=== PATIENT | female | born 1985 | race American Indian/Alaskan Native ===

== ENCOUNTER 2016-12-27 07:34 | Emergency (ER) | payer MEDICAID ==
[2016-12-27] MEDS ORDERED: Lidocaine 1% 30 ML SDV INJECT ONE (07:51)
[2016-12-27 08:48] VITALS: BP 116/72
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
== END 2016-12-27 08:25 | disposition home or self-care (01) ==
LOC: VM.ED 07:34
DX: S01.111A Laceration without foreign body of right eyelid and periocular area, initial encounter (principal); J45.909 Unspecified asthma, uncomplicated; Z90.49 Acquired absence of other specified parts of digestive tract; Y00.XXXA Assault by blunt object, initial encounter
CPT/HCPCS: 12011; 99282

== ENCOUNTER 2017-09-26 16:06 | Emergency (ER) | payer MEDICAID ==
[2017-09-26 16:20] VITALS: BP 138/72
[2017-09-26] MEDS ORDERED: Albuterol/Ipratropium 3.0-0.5 MG/3 ML Neb Soln NEB ONE (16:25)
[2017-09-26] MEDS ORDERED: Take Home: Codeine/guaiFENesin 100-10 MG/5 ML Syrup 5 ML, 2 Cup Pack PO ONE (16:47)
--- NOTE | 2017-09-26 16:51 | EDM.PDOC ---
ED HPI GENERAL MEDICAL PROBLEM - General Chief Complaint: Respiratory Problem Stated Complaint: cough Time Seen by Provider: 09/26/17 16:24 Source of Information: Reports: Patient History Limitations: Reports: No Limitations - History of Present Illness INITIAL COMMENTS - FREE TEXT/NARRATIVE: Patient comes in with complaints of a cough for the last few days. Denies chest tightening. No fever, chills, or night sweats. Has a history of asthma and is utilizing her rescue inhaler for her cough and shortness of breath. This has been effective and she states that this is all she does when she gets sick. Otherwise she does not use her rescue inhaler. No chest pain, abdominal pain, no bowel or bladder complaints. Afebrile today. She has been sick for approximately 5-6 days total per her report. This is her first visit for this problem. Is taking OTC medications and these have helped somewhat. 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 - Past Surgical History GI Surgical History: Reports: Cholecystectomy Female Surgical History: Reports: Section Social & Family History - Tobacco Use Smoking Status *Q: Unknown Ever Smoked ED ROS GENERAL - Review of Systems Review Of Systems: See Below Constitutional: Reports: No Symptoms HEENT: Reports: No Symptoms Respiratory: Reports: Shortness of Breath, Cough Cardiovascular: Reports: No Symptoms Endocrine: Reports: No Symptoms GI/Abdominal: Reports: No Symptoms : Reports: No Symptoms Musculoskeletal: Reports: No Symptoms Skin: Reports: No Symptoms Neurological: Reports: No Symptoms Psychiatric: Reports: No Symptoms Hematologic/Lymphatic: Reports: No Symptoms Immunologic: Reports: No Symptoms ED EXAM, GENERAL - Physical Exam Exam: See Below Exam Limited By: No Limitations General Appearance: Alert, WD/WN, No Apparent Distress Eye Exam: Bilateral Eye: EOMI, Normal Inspection, PERRL Ears: Normal TMs Nose: Normal Inspection, Normal Mucosa, No Blood Throat/Mouth: Normal Inspection, Normal Lips, Normal Teeth, Normal Gums, Normal Oropharynx, Normal Voice, No Airway Compromise Head: Atraumatic, Normocephalic Neck: Normal Inspection, Supple, Non-Tender, Full Range of Motion Respiratory/Chest: No Respiratory Distress, No Accessory Muscle Use, Wheezing ( bilateral lower lungs) Cardiovascular: Normal Peripheral Pulses, Regular Rate, Rhythm, No Edema, No Gallop, No JVD, No Murmur, No Rub GI/Abdominal: Normal Bowel Sounds, Soft, Non-Tender, No Organomegaly, No Distention, No Abnormal Bruit, No Mass Back Exam: Normal Inspection, Full Range of Motion, NT Extremities: Normal Inspection, Normal Range of Motion, Non-Tender, Normal Capillary Refill, No Pedal Edema Neurological: Alert, Oriented, CN II-XII Intact, Normal Cognition, Normal Gait, Normal Reflexes, No Motor/Sensory Deficits Psychiatric: Normal Affect, Normal Mood Skin Exam: Warm, Dry, Intact, Normal Color, No Rash Lymphatic: No Adenopathy Course - Vital Signs Last Recorded V/S: Last Vital Signs Temp 37.1 C 09/26/17 16:10 Pulse 73 09/26/17 16:10 Resp 18 09/26/17 16:10 BP 138/72 09/26/17 16:10 Pulse Ox 96 09/26/17 16:10 - Orders/Labs/Meds Orders: Active Orders 24 hr Category Date Time Status RT Aerosol Therapy [RC] ASDIRECTED Care 09/26/17 16:25 Active Labs: Laboratory Tests 09/26/17 Range/Units 16:38 WBC 10.2 H (4.0-10.0) x10^3/uL RBC 4.26 (4.00-5.50) x10^6/uL Hgb 13.1 (12.0-16.0) g/dL Hct 41.1 (33.0-47.0) % MCV 96.5 H (78.0-93.0) fL MCH 30.8 (26.0-32.0) pg MCHC 31.9 L (32.0-36.0) g/dL RDW Coeff of Irene 12.9 (10.0-15.0) % Plt Count 303 (130-400) x10^3/uL Neut % (Auto) 66.3 (50.0-80.0) % Lymph % (Auto) 20.6 L (25.0-50.0) % Sanders % (Auto) 8.8 (2.0-11.0) % Eos % (Auto) 3.8 (0.0-4.0) % Baso % (Auto) 0.5 (0.2-1.2) % Meds: Medications Discontinued Medications Generic Name Dose Route Start Last Admin Trade Name Freq PRN Reason Stop Dose Admin Albuterol/Ipratropium 3 ml 09/26/17 16:25 09/26/17 16:34 Duoneb 3.0-0.5 Mg/3 Ml NEB 09/26/17 16:26 3 ml ONETIME ONE Administration Guaifenesin/Codeine Phosphate 1 packet 09/26/17 16:47 09/26/17 16:56 Take Home: Codeine/Guaifenesin 100-10 Mg/5ml PO 09/26/17 16:48 1 packet ONETIME ONE Administration - Radiology Interpretation Free Text/Narrative:: Review of CBC, results do not indicate bacterial infection. Recommend follow up with primary care, continue OTC, will give cough syrup as take home. Departure - Departure Time of Disposition: 17:00 Disposition: Home, Self-Care 01 Condition: Good Clinical Impression: Viral upper respiratory infection - Discharge Information Instructions: Upper Respiratory Infection, Adult, [id number] Referrals: Dg Jolley MD [Primary Care Provider] - Forms: ED Department Discharge Additional Instructions: Take the cough syrup at bedtime so you can get better rest. Follow up at the clinic in the next 3-4 days if you are not improved. This does appear to be viral in nature. Continue to take over the counter medications to treat your symptoms. Stay well hydrated. Call the hospital with any questions or concerns. - Problem List & Annotations (1) Viral upper respiratory infection SNOMED Code(s): 845430663 Code(s): J06.9 - ACUTE UPPER RESPIRATORY INFECTION, UNSPECIFIED Status: Acute Priority: Low - Problem List Review Problem List Initiated/Reviewed/Updated: Yes - My Orders Last 24 Hours: My Active Orders 09/26/17 16:25 RT Aerosol Therapy [RC] ASDIRECTED - Assessment/Plan Last 24 Hours: My Active Orders 09/26/17 16:25 RT Aerosol Therapy [RC] ASDIRECTED Assessment:: upper respiratory infection Plan: Take the cough syrup at bedtime so you can get better rest. Follow up at the clinic in the next 3-4 days if you are not improved. This does appear to be viral in nature. Continue to take over the counter medications to treat your symptoms. Stay well hydrated. Call the hospital with any questions or concerns.
== END 2017-09-26 17:00 | disposition home or self-care (01) ==
LOC: VM.ED 16:06
DX: J06.9 Acute upper respiratory infection, unspecified (principal); J45.909 Unspecified asthma, uncomplicated
CPT/HCPCS: 36415; 85025; 94640; 99283; A9270

== ENCOUNTER 2018-12-05 15:23 | Emergency (ER) | payer MEDICAID ==
[2018-12-05 15:32] VITALS: BP 149/92; PULSE 86
--- NOTE | 2018-12-05 16:15 | EDM.PDOC ---
ED HPI GENERAL MEDICAL PROBLEM - General Chief Complaint: Lower Extremity Injury/Pain Stated Complaint: FELL, HURT KNEE AND RT ANKLE Time Seen by Provider: 12/05/18 15:35 Source of Information: Reports: Patient History Limitations: Reports: No Limitations - History of Present Illness INITIAL COMMENTS - FREE TEXT/NARRATIVE: Pt. states that she tripped over some uneven concrete, twisting her R ankle, and causing abrasions to her L knee, foot, and ankle. She did not strike her head. She recalls the entire event. Pt. main area of discomfort is her R ankle. She feels as though the other injuries are superficial and are not causing her a significant amount of discomfort. Denies numbness/tingling in extremities. 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 - Past Surgical History GI Surgical History: Reports: Cholecystectomy Female Surgical History: Reports: Section Social & Family History - Tobacco Use Smoking Status *Q: Current Every Day Smoker Years of Tobacco use: 15 Packs/Tins Daily: 0.2 - Recreational Drug Use Recreational Drug Use: No Review of Systems - Review of Systems Review Of Systems: ROS reveals no pertinent complaints other than HPI. ED EXAM, GENERAL - Physical Exam Exam: See Below Exam Limited By: No Limitations General Appearance: Alert, WD/WN, No Apparent Distress Extremities: Other (swelling and ecchymosis to the lateral aspect of the R ankle. No deformity noted. She has a large abrasion to her L knee, as well as some superfical abrasions to L ankle and foot. There is some bleeding under the L great toe nail, but it is superficial and there does not appear to be a significant nail injury or subungual hematoma.) Course - Vital Signs Last Recorded V/S: Last Vital Signs Temp 36.8 C 12/05/18 15:32 Pulse 86 12/05/18 15:32 Resp 14 12/05/18 15:32 BP 149/92 H 12/05/18 15:32 Pulse Ox 97 12/05/18 15:32 - Orders/Labs/Meds Orders: Active Orders 24 hr Category Date Time Status Ankle Min 3V Rt [CR] Stat Exams 12/05/18 15:45 Ordered - Radiology Interpretation Free Text/Narrative:: No obvious bony injury noted on radiographs of R ankle. Departure - Departure Time of Disposition: 16:35 Disposition: Home, Self-Care 01 Clinical Impression: High ankle sprain of right lower extremity - Discharge Information Instructions: Ankle Sprain, [id number], Cast or Splint Care, Adult, Easy-to- Read, RICE for Routine Care of Injuries Referrals: Dg Jolley MD [Primary Care Provider] - Forms: ED Department Discharge Additional Instructions: Use splint and shelton wrap. Use crutches as needed. Recheck in clinic in 7-10 days if not gradually improving. Elevate R foot and ankle-attempt to keep it above your heart. Ice ankle for 20 min. every 30 min. - My Orders Last 24 Hours: My Active Orders 12/05/18 15:45 Ankle Min 3V Rt [CR] Stat - Assessment/Plan Last 24 Hours: My Active Orders 12/05/18 15:45 Ankle Min 3V Rt [CR] Stat Plan: Use splint and shelton wrap. Use crutches as needed. Recheck in clinic in 7-10 days if not gradually improving. Elevate R foot and ankle-attempt to keep it above your heart. Ice ankle for 20 min. every 30 min.
--- NOTE | 2018-12-05 16:36 | CR ---
[id number] RAD/RAD Ankle Right 3V Min EXAM: RIGHT ANKLE 3 VIEWS INDICATION: TRIPPED OVER CONCRETE. COMPARISON: None. DISCUSSION: Mild lateral soft tissue swelling. No fracture is identified. Joint spaces are maintained. Mild tibiotalar and talonavicular osteoarthritis. IMPRESSION: 1. Soft tissue swelling. No fracture identified. Fitz Toledo MD 12/05/18 [id number] Thank you for allowing us to participate in the care of your patient.
== END 2018-12-05 16:40 | disposition home or self-care (01) ==
LOC: VM.ED 15:23
DX: S93.401A Sprain of unspecified ligament of right ankle, initial encounter (principal); F17.210 Nicotine dependence, cigarettes, uncomplicated; X50.9XXA Other and unspecified overexertion or strenuous movements or postures, initial encounter
CPT/HCPCS: 73610-RT; 99283-25

== ENCOUNTER 2020-06-23 16:02 | Emergency (ER) | payer MEDICAID ==
[2020-06-23] MEDS ORDERED: Take Home: Sulfamethoxazole/Trimethoprim 800-160 MG Tab, 2 Tab Pack PO ONE (16:16)
[2020-06-23 16:20] VITALS: BP 146/75; PULSE 96
--- NOTE | 2020-06-23 18:12 | EDM.PDOC ---
ED HPI GENERAL MEDICAL PROBLEM - General Chief Complaint: Skin Complaint Stated Complaint: NECK PAIN Time Seen by Provider: 06/23/20 16:05 Source of Information: Reports: Patient History Limitations: Reports: No Limitations - History of Present Illness INITIAL COMMENTS - FREE TEXT/NARRATIVE: Pt. presents to ER with complaints of swelling to the back of her neck. She states that she is prone to skin structure infections. She has not been tested for MRSA. Denies any fever or chills. She states that she has noted a small abscess in the area that has been draining. Pt. states that the pain is superficial. She is not experiencing any chest pain or shortness of breath. Denies any headache. She states that the lesion is isolated to the posterior aspect of her neck only. Denies any lesions elsewhere. 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 - Past Surgical History GI Surgical History: Reports: Cholecystectomy Female Surgical History: Reports: Section Social & Family History - Tobacco Use Tobacco Use Status *Q: Current Some Day Tobacco User Years of Tobacco use: 10 Packs/Tins Daily: 0.2 - Recreational Drug Use Recreational Drug Use: No ED ROS GENERAL - Review of Systems Review Of Systems: Comprehensive ROS is negative, except as noted in HPI. ED EXAM, SKIN/RASH Exam: See Below Neck: Other (Area of cellulitis/induration. There was a small area that had been draining but was unable to express any material at this time. ) Course - Vital Signs Last Recorded V/S: Last Vital Signs Temp 36.9 C 06/23/20 16:05 Pulse 96 06/23/20 16:05 Resp 16 06/23/20 16:05 BP 146/75 H 06/23/20 16:05 Pulse Ox 97 06/23/20 16:05 - Orders/Labs/Meds Meds: Medications Discontinued Medications Generic Name Dose Route Start Last Admin Trade Name Cierra PRN Reason Stop Dose Admin Trimethoprim/Sulfamethoxazole 1 packet 06/23/20 16:16 06/23/20 16:21 Take Home: Sulfameth/Trimet 800-160mg, 2 Pack PO 06/23/20 16:17 1 packet ONETIME ONE Administration Departure - Departure Time of Disposition: 17:00 Disposition: Home, Self-Care 01 Clinical Impression: Cellulitis - Discharge Information Instructions: Cellulitis, Adult, Sulfamethoxazole; Trimethoprim, SMX-TMP tablets, Probiotics Referrals: Alma Delia Roberts MD [Primary Care Provider] - Forms: ED Department Discharge Additional Instructions: Bactrim DS 1 twice daily for 10 days Keep applying warm packs to the area. Recheck in clinic in 10-14 days, sooner if not gradually improving Ibuprofen 200mg 4 tabs every 8 hours as needed for pain Sepsis Event Note (ED) - Evaluation Sepsis Screening Result: No Definite Risk - Focused Exam Vital Signs: Vital Signs Temp Pulse Resp BP Pulse Ox 06/23/20 16:05 36.9 C 96 16 146/75 H 97 - Problem List Review Problem List Initiated/Reviewed/Updated: Yes - Assessment/Plan Plan: Bactrim DS 1 twice daily for 10 days Keep applying warm packs to the area. Recheck in clinic in 10-14 days, sooner if not gradually improving Ibuprofen 200mg 4 tabs every 8 hours as needed for pain
== END 2020-06-23 16:30 | disposition home or self-care (01) ==
LOC: VM.ED 16:02
DX: L03.221 Cellulitis of neck (principal); J45.909 Unspecified asthma, uncomplicated; Z72.0 Tobacco use
CPT/HCPCS: 99283; A9270-GY

== ENCOUNTER 2020-07-09 19:13 | Emergency (ER) | payer MEDICAID ==
[2020-07-09 19:30] VITALS: BP 147/71; PULSE 81
[2020-07-09] MEDS ORDERED: Sodium Chloride 0.9% 10 ML Syringe FLUSH PRN (19:40)
--- NOTE | 2020-07-09 19:47 | EDM.PDOC ---
ED HPI GENERAL MEDICAL PROBLEM - General Chief Complaint: Skin Complaint Stated Complaint: GENERAL Time Seen by Provider: 07/09/20 19:28 Source of Information: Reports: Patient - History of Present Illness INITIAL COMMENTS - FREE TEXT/NARRATIVE: Susan is a 34 y/o female who comes to the ER tonight with several sores on the back of her neck and 1 on her left breast. She was seen here in the ER on 021 and given Bactrim for another wound on her neck. She reports that she took all of the medication, but that the neck wound is still draining or she has another one on the other side. Also has a similar wound on her left breast that she keeps covered with a bandaid. No fevers. She reports that she frequently gets skin infections at random locations. She has previously seen Dr Pedro Anguiano and is not able to get into the clinic until Wednesday since she is being assigned a new provider. 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 - Past Surgical History GI Surgical History: Reports: Cholecystectomy Female Surgical History: Reports: Section Social & Family History - Family History Family Medical History: No Pertinent Family History - Tobacco Use Tobacco Use Status *Q: Current Every Day Tobacco User Years of Tobacco use: 10 Packs/Tins Daily: 0.2 - Alcohol Use Days Per Week of Alcohol Use: 7 Number of Drinks Per Day: 2 Total Drinks Per Week: 14 - Recreational Drug Use Recreational Drug Use: No ED ROS GENERAL - Review of Systems Review Of Systems: See Below Constitutional: Reports: No Symptoms HEENT: Reports: No Symptoms Respiratory: Reports: No Symptoms Cardiovascular: Reports: No Symptoms Endocrine: Reports: No Symptoms GI/Abdominal: Reports: No Symptoms : Reports: No Symptoms Musculoskeletal: Reports: No Symptoms Skin: Reports: Wound (back of neck, left breast) Neurological: Reports: No Symptoms Psychiatric: Reports: No Symptoms Hematologic/Lymphatic: Reports: No Symptoms Immunologic: Reports: No Symptoms ED EXAM, SKIN/RASH Exam: See Below Exam Limited By: No Limitations General Appearance: Alert, WD/WN, No Apparent Distress (Obese adult female) Ears: Hearing Grossly Normal Nose: Normal Inspection Throat/Mouth: Normal Lips, Normal Voice Head: Atraumatic, Normocephalic Neck: Other (note a healing wound on the back oher neck in the crease of skin and also another open area in the left side of the back of her neck, drainage is light green and the area is moist, no induration noted, but tender to touch; note another open area on the left breast region draining light green pus) Respiratory/Chest: No Respiratory Distress Cardiovascular: Regular Rate, Rhythm GI/Abdominal: Normal Bowel Sounds (Female) Exam: Deferred Rectal (Female) Exam: Deferred Back Exam: Normal Inspection Extremities: Normal Inspection, Normal Range of Motion, Normal Capillary Refill Neurological: Alert, Oriented, CN II-XII Intact, Normal Cognition, No Motor/Sensory Deficits Psychiatric: Normal Affect, Normal Mood Skin: Warm, Dry, Intact, Normal Color Course - Vital Signs Text/Narrative:: 1927 The patient was seen by the [facility]. Labs ordered. Wounds cultured since not previously done when she was seen on 06/24. Vancomycin 1gm IVPB ordered. 2000 Labs reviewed. Will send her home with 10 days of Clindamycin. She was given discharge instructions and left the ER in stable condition. Last Recorded V/S: Last Vital Signs Temp 36.8 C 07/09/20 19:24 Pulse 81 07/09/20 19:24 Resp 18 07/09/20 19:24 BP 147/71 H 07/09/20 19:24 Pulse Ox 95 07/09/20 19:24 - Orders/Labs/Meds Orders: Active Orders 24 hr Category Date Time Status CULTURE WOUND [RM] Stat Lab 07/09/20 19:50 Received CULTURE WOUND [RM] Stat Lab 07/09/20 19:50 Received Saline Lock Insert [OM.PC] Stat Oth 07/09/20 19:40 Ordered Labs: Laboratory Tests 03/09/21 03/09/21 Range/Units 19:45 19:45 WBC 10.4 H (4.0-10.0) x10^3/uL RBC 4.09 (4.00-5.50) x10^6/uL Hgb 13.1 (12.0-16.0) g/dL Hct 40.2 (33.0-47.0) % MCV 98.3 H (78.0-93.0) fL MCH 32.0 (26.0-32.0) pg MCHC 32.6 (32.0-36.0) g/dL RDW Coeff of Irene 12.2 (10.0-15.0) % Plt Count 310 (130-400) x10^3/uL Neut % (Auto) 76.1 (50.0-80.0) % Lymph % (Auto) 17.2 L (25.0-50.0) % [place] % (Auto) 4.4 (2.0-11.0) % Eos % (Auto) 1.9 (0.0-4.0) % Baso % (Auto) 0.4 (0.2-1.2) % Sodium 138 (136-145) mmol/L Potassium 3.4 L (3.5-5.1) mmol/L Chloride 104 (98-107) mmol/L Carbon Dioxide 27 (21-32) mmol/L Anion Gap 10.4 (5-15) mmol/L BUN 10 (7-18) mg/dL Creatinine 0.9 (0.55-1.02) mg/dL Est Cr Clr Drug Dosing 77.49 mL/min Estimated GFR (MDRD) > 60 Glucose 151 H (74-106) mg/dL Calcium 8.3 L (8.5-10.1) mg/dL Departure - Departure Time of Disposition: 21:33 Disposition: Home, Self-Care 01 Condition: Good Clinical Impression: Skin infection - Discharge Information *PRESCRIPTION DRUG MONITORING PROGRAM REVIEWED*: No *COPY OF PRESCRIPTION DRUG MONITORING REPORT IN PATIENT IGNACIO: No Prescriptions: Clindamycin HCl 300 mg PO TID 10 Days #30 capsule Instructions: MRSA Infection, Self-Care, Adult, Clindamycin capsules Referrals: Alma Delia Roberts MD [Primary Care Provider] - Forms: ED Department Discharge Additional Instructions: -Bactrim DS 1 tablets oral twice daily x 10 days #20 (Rx) -Ibuprofen 200mg 3 tabs oral every 6 hours as needed for pain (OTC) -Wash the area daily with soap and water. -Dressing changes as instructed; Cover the open draining wounds with dry cause and tape and changes as needed throughout the day, but at least 2-3 times daily. -Make sure you wash your hands well after dressing changes. Also wash your shower/tub very well between family members to prevent the spread to others. Use bleach in your tub or shower to clean. -Follow up with PCP at the [facility] at the end of the week. -Return to the ER with any concerns Sepsis Event Note (ED) - Evaluation Sepsis Screening Result: No Definite Risk - Focused Exam Vital Signs: Vital Signs Temp Pulse Resp BP Pulse Ox 07/09/20 19:24 36.8 C 81 18 147/71 H 95 - My Orders Last 24 Hours: My Active Orders 07/09/20 19:40 Saline Lock Insert [OM.PC] Stat 07/09/20 19:50 CULTURE WOUND [RM] Stat CULTURE WOUND [RM] Stat - Assessment/Plan Last 24 Hours: My Active Orders 07/09/20 19:40 Saline Lock Insert [OM.PC] Stat 07/09/20 19:50 CULTURE WOUND [RM] Stat CULTURE WOUND [RM] Stat
[2020-07-09] MEDS ORDERED: Vancomycin 1 GM SDV ONE (20:03)
[2020-07-09] MEDS ORDERED: Sodium Chloride 0.9% 250 ML ONE (20:10)
[2020-07-09 20:20] LABS: CHLORIDE,CL 104 mmol/L (98-107); SODIUM,NA 138 mmol/L (136-145)
[2020-07-09 20:21] LABS: ANION GAP 10.4 mmol/L (5-15)
== END 2020-07-09 21:33 | disposition home or self-care (01) ==
LOC: VM.ED 19:13
DX: L08.9 Local infection of the skin and subcutaneous tissue, unspecified (principal); J45.909 Unspecified asthma, uncomplicated; E66.9 Obesity, unspecified; Z68.43 Body mass index [BMI] 50.0-59.9, adult; Z72.0 Tobacco use
CPT/HCPCS: 80048; 85025; 87070; 87077; 87186; 96365; 99283; 99283-25; J3370; J7050

== ENCOUNTER 2021-02-28 16:26 | Emergency (ER) | payer MEDICAID ==
[2021-02-28 16:45] VITALS: BP 143/82; PULSE 91
--- NOTE | 2021-02-28 16:56 | EDM.PDOC ---
ED HPI GENERAL MEDICAL PROBLEM - General Chief Complaint: Lower Extremity Injury/Pain Stated Complaint: PAIN IN L KNEE Time Seen by Provider: 02/28/21 16:40 Source of Information: Reports: Patient History Limitations: Reports: No Limitations - History of Present Illness INITIAL COMMENTS - FREE TEXT/NARRATIVE: Patient presents to the ED for left knee pain since yesterday. 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 No previous injury to the left knee, no known injury. Chronically has right knee problems with no surgery in the past but told she has some arthritis. Yesterday after getting up off the floor multiple times for work she noted the left knee starting to hurt " deep" in the middle of the knee. Not bulking or giving away, able to ambulate without a limp. No redness or drainage. Has not tried anything for it but does take motrin usually. Has not iced or used compression. Is supposed to work today but feels she can not do so due to the pain that is worse with kneeling and bent knee position. Onset Date: 02/27/21 Location: Reports: Lower Extremity, Left Quality: Reports: Ache Severity: Moderate Left Knee Pain Score (Numeric/FACES): 6 - Related Data Allergies Allergy/AdvReac Type Severity Reaction Status Date / Time No Known Allergies Allergy Verified 02/28/21 16:41 Home Meds: Home Meds . 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 - Past Surgical History GI Surgical History: Reports: Cholecystectomy Female Surgical History: Reports: Section Social & Family History - Family History Family Medical History: No Pertinent Family History - Tobacco Use Tobacco Use Status *Q: Current Some Day Tobacco User Years of Tobacco use: 15 Packs/Tins Daily: 0.5 - Alcohol Use Days Per Week of Alcohol Use: 7 Number of Drinks Per Day: 3 Total Drinks Per Week: 21 - Recreational Drug Use Recreational Drug Use: No Review of Systems - Review of Systems Review Of Systems: See Below Constitutional: Reports: No Symptoms. Denies: Chills Eyes: Reports: No Symptoms Ears: Reports: No Symptoms Nose: Reports: No Symptoms Mouth/Throat: Reports: No Symptoms Respiratory: Reports: No Symptoms Cardiovascular: Reports: No Symptoms Musculoskeletal: Reports: Joint Pain (left knee) Skin: Reports: No Symptoms Neurological: Reports: No Symptoms Psychiatric: Reports: No Symptoms ED EXAM, GENERAL - Physical Exam Exam: See Below Exam Limited By: No Limitations General Appearance: Alert, WD/WN, No Apparent Distress Nose: Normal Inspection Throat/Mouth: Normal Inspection, Normal Lips, Normal Voice Head: Atraumatic Respiratory/Chest: No Respiratory Distress, Lungs Clear Cardiovascular: Regular Rate, Rhythm Extremities: Other (left knee with negative lillian's no valgus or varus laxity on stress testing. Mild joint effusion, crepitus with compression of the patella in the patellofemoral groove. no erythema, full extension to 0 degrees and flexion to 90 degrees. NO pain to palpation of the tibial plateau) Neurological: Alert, Oriented, CN II-XII Intact, Normal Gait Course - Vital Signs Last Recorded V/S: Last Vital Signs Temp 36.9 C 02/28/21 16:30 Pulse 91 02/28/21 16:30 Resp 16 02/28/21 16:30 BP 143/82 H 02/28/21 16:30 Pulse Ox 97 02/28/21 16:30 - Orders/Labs/Meds Orders: Active Orders 24 hr Category Date Time Status Knee 3V Lt [CR] Stat Exams 02/28/21 16:42 Ordered - Radiology Interpretation Free Text/Narrative:: no acute, decreased medial joint space and lateral tilt of the patella with decreased joint space consistent with patellofemoral disease preliminary report only - Re-Assessments/Exams Free Text/Narrative Re-Assessment/Exam: 02/28/21 16:58 will check an x-ray. likely patellofemoral problems based on exam and patient's body habitus. motrin 600 mg every 6 hours, ice, shelton wrap, avoiding bent knee and kneeling position for the next 3 days. Follow up with PCP Departure - Departure Time of Disposition: 17:16 Disposition: Home, Self-Care 01 Condition: Good Clinical Impression: Joint effusion of knee, Knee pain - Discharge Information Instructions: Knee Effusion, [id number], Acute Knee Pain, Adult, [id number], Patellofemoral Pain Syndrome Referrals: Alma Delia Roberts MD [Primary Care Provider] - Forms: ED Department Discharge, ED Return to Work/School Form Additional Instructions: take motrin 600 mg every 6 hours for pain and swelling. Ice, elevate and wear shelton wrap on the knee. Avoid kneeling, bent knee positions, stairs. Off work until Wednesday, return at that time or follow up PCP, as some strengthening exercise may help the knee pain and tilt. Sepsis Event Note (ED) - Evaluation Sepsis Screening Result: No Definite Risk - Focused Exam Vital Signs: Vital Signs Temp Pulse Resp BP Pulse Ox 02/28/21 16:30 36.9 C 91 16 143/82 H 97 - My Orders Last 24 Hours: My Active Orders 02/28/21 16:42 Knee 3V Lt [CR] Stat - Assessment/Plan Last 24 Hours: My Active Orders 02/28/21 16:42 Knee 3V Lt [CR] Stat
--- NOTE | 2021-02-28 17:41 | CR ---
[id number] RAD/RAD Knee Left 3V Exam: RAD Knee Left 3V Indication:PAIN, SWELLING. Comparison: None. Discussion/Impression: Tricompartmental knee joint osteoarthritis with medial compartment joint space narrowing. No joint effusion. No fracture. Bones remain in normal alignment. Harry Frederick MD 02/28/21 1154 Thank you for allowing us to participate in the care of your patient.
== END 2021-02-28 17:50 | disposition home or self-care (01) ==
LOC: VM.ED 16:26
DX: M25.462 Effusion, left knee (principal); Z72.0 Tobacco use
CPT/HCPCS: 73562-LT; 99283-25

== ENCOUNTER 2021-04-08 14:40 | Inpatient (IN) | payer MEDICAID ==
[2021-04-08] MEDS ORDERED: REMDESIVIR 200 MG in Sodium Chloride 0.9% 250 ML IV ONE (15:17)
--- NOTE | 2021-04-08 15:31 | EDM.PDOC ---
ED HPI GENERAL MEDICAL PROBLEM - General Chief Complaint: Respiratory Problem Time Seen by Provider: 04/08/21 14:45 Source of Information: Reports: Patient History Limitations: Reports: No Limitations - History of Present Illness INITIAL COMMENTS - FREE TEXT/NARRATIVE: Pt. presents to ER with complaints of cough, chest congestion, loss of taste, lightheadedness, poor appetite, fatigue, and shortness of breath. Pt. had + covid test 03/31/21. She was diagnosed on 03/29/21. Her child tested positive as well. Pt. is not vaccinated. She came to the hospital as an outpatient today for MAB infusion and was found to have an O2 sat of 83%. She was subsequently brought to ER and placed on O2 per NC at 3L/min. and O2 sat increased to 93%. Pt. states that her appetite has been poor. She has been attempting to drink water. She has been taking ibuprofen for fever and discomfort. She complains of nausea but no vomiting. Denies any diarrhea. No chest pain. She complains of diffuse myalgias and arthralgias. Onset Date: 04/30/21 Location: Reports: Chest, Generalized Severity: Moderate Associated Symptoms: Reports: Shortness of Breath - Related Data Allergies Allergy/AdvReac Type Severity Reaction Status Date / Time No Known Allergies Allergy Verified 04/08/21 15:17 Home Meds: Home Meds . 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 - Past Surgical History GI Surgical History: Reports: Cholecystectomy Female Surgical History: Reports: Section Social & Family History - Family History Family Medical History: No Pertinent Family History ED ROS GENERAL - Review of Systems Review Of Systems: See Below Constitutional: Reports: Fever, Chills, Malaise, Weakness HEENT: Reports: No Symptoms Respiratory: Reports: Shortness of Breath, Cough Cardiovascular: Reports: No Symptoms Endocrine: Reports: No Symptoms GI/Abdominal: Reports: No Symptoms : Reports: No Symptoms Musculoskeletal: Reports: Joint Pain, Muscle Pain Skin: Reports: No Symptoms Neurological: Reports: No Symptoms Psychiatric: Reports: No Symptoms Hematologic/Lymphatic: Reports: No Symptoms Immunologic: Reports: No Symptoms ED EXAM, GENERAL - Physical Exam Exam: See Below Exam Limited By: No Limitations General Appearance: Alert, WD/WN, No Apparent Distress Eye Exam: Bilateral Eye: EOMI, PERRL Throat/Mouth: Normal Inspection, Normal Lips, Normal Oropharynx, Normal Voice Head: Atraumatic, Normocephalic Neck: Normal Inspection, Supple, Non-Tender, Full Range of Motion Respiratory/Chest: Decreased Breath Sounds, Crackles Cardiovascular: Normal Peripheral Pulses, Regular Rate, Rhythm, No JVD Peripheral Pulses: 4+: Radial (L) GI/Abdominal: Soft, Non-Tender, No Distention, No Mass (Female) Exam: Deferred Rectal (Female) Exam: Deferred Back Exam: Normal Inspection, Full Range of Motion Extremities: Normal Inspection, Normal Range of Motion, Non-Tender, No Pedal Edema, Normal Capillary Refill Neurological: Alert, Oriented, CN II-XII Intact, Normal Cognition, Normal Gait, No Motor/Sensory Deficits Psychiatric: Normal Affect, Normal Mood Lymphatic: No Adenopathy #1 Interpretation Rhythm: NSR [place]: Normal P-Wave: Present QRS: Normal ST-T: Normal QT: Normal Course - Vital Signs Last Recorded V/S: Last Vital Signs Temp 38.8 C H 04/08/21 15:32 Pulse 107 H 04/08/21 14:45 Resp 28 H 04/08/21 14:45 BP 133/63 04/08/21 14:45 Pulse Ox 83 L 04/08/21 14:45 - Orders/Labs/Meds Orders: Active Orders 24 hr Category Date Time Status Patient Status [ADT] Routine ADT 04/08/21 18:10 Active Cardiac Monitoring [RC] . DIRECTED Care 04/08/21 15:17 Active RT Incentive Spirometry [RC] ASDIRECTED Care 04/08/21 15:17 Active PE Chest [Ang Chest] [CT] Stat Exams 04/08/21 16:17 Ordered CULTURE BLOOD [BC] Stat Lab 04/08/21 15:40 Received CULTURE BLOOD [BC] Stat Lab 04/08/21 15:45 Received Acetaminophen [TylenoL] Med 04/08/21 15:17 Active 650 mg PO Q4H PRN Isolation [COMM] Stat Oth 04/08/21 15:17 Ordered Medication Orders Acetaminophen (Acetaminophen 325 Mg Tab) 650 mg PO Q4H PRN PRN Reason: Fever Greater Than 101 Last Admin: 04/08/21 15:32 Dose: 650 mg Documented by: [facility] Albuterol (Albuterol Hfa 18 Gm Inhaler) 0 gm INH Q4H PRN PRN Reason: Shortness of Breath Dexamethasone 2 mg/ (Dexamethasone 4 mg) 6 mg PO DAILY [facility] Stop: 04/13/21 15:01 Enoxaparin Sodium (Enoxaparin 40 Mg/0.4 Ml Syringe) 40 mg SUBCUT 1200 [facility] Remdesivir 100 mg/ Sodium (Chloride) 100 mls @ 100 mls/hr IV Q24H [facility] Stop: 04/12/21 15:59 Ibuprofen (Ibuprofen 200 Mg Tab) 600 mg PO Q6H PRN PRN Reason: Pain (mild 1-3) Ondansetron HCl (Ondansetron 4 Mg Tab.Dis) 4 mg PO Q4H PRN PRN Reason: nausea, able to take PO Labs: Laboratory Tests 04/08/21 04/08/21 04/08/21 Range/Units 15:40 15:40 15:40 WBC (4.0-10.0) x10^3/uL RBC (4.00-5.50) x10^6/uL Hgb (12.0-16.0) g/dL Hct (33.0-47.0) % MCV (78.0-93.0) fL MCH (26.0-32.0) pg MCHC (32.0-36.0) g/dL RDW Coeff of Irene (10.0-15.0) % Plt Count (130-400) x10^3/uL Immature Gran % (Auto) (0.00-0.43) % Neut % (Auto) (50.0-80.0) % Lymph % (Auto) (25.0-50.0) % [place] % (Auto) (2.0-11.0) % Eos % (Auto) (0.0-4.0) % Baso % (Auto) (0.2-1.2) % Neut # (Auto) (1.8-7.7) x10^3/uL Lymph # (Auto) (1.0-4.8) x10^3/uL [place] # (Auto) (0.0-0.8) x10^3/uL Eos # (Auto) (0.0-0.5) x10^3/uL Baso # (Auto) (0.0-0.2) x10^3/uL Immature Gran # (Auto) (0.00-0.07) x10^3/uL PT 10.3 (9.9-12.5) SEC INR 0.9 L (2.0-3.5) APTT 27.4 (25.6-32.8) SEC D-Dimer, Quantitative (<=0.58) mg/LFEU POC VBG pH (7.33-7.43) pH POC VBG pCO2 (41-51) mmHg POC VBG pO2 mmHg POC VBG HCO3 (22-29) mmol/L POC Venous O2 Sat % VBG Base Excess (-(2)-3) mmol/L POC FiO2 Sodium 135 L (136-145) mmol/L Potassium 3.9 (3.5-5.1) mmol/L Chloride 98 (98-107) mmol/L Carbon Dioxide 25 (21-32) mmol/L POC Venous Total CO2 (23-30) mmol/L Anion Gap 15.9 H (5-15) mmol/L BUN 9 (7-18) mg/dL Creatinine 0.9 (0.55-1.02) mg/dL Est Cr Clr Drug Dosing 76.77 mL/min Estimated GFR (MDRD) > 60 Glucose 107 H (70-99) mg/dL Lactic Acid 1.3 (0.4-2.0) mmol/L Calcium 8.7 (8.5-10.1) mg/dL Ferritin (8-252) ng/mL Total Bilirubin 0.5 (0.2-1.0) mg/dL Direct Bilirubin 0.24 H (0.00-0.20) mg/dL Indirect Bilirubin 0.26 AST 58 H (15-37) U/L ALT 33 (14-59) U/L Alkaline Phosphatase 57 (46-116) U/L Lactate Dehydrogenase 484 H (81-234) U/L Creatine Kinase 214 H* (26-192) U/L C-Reactive Protein 15.2 H (<=0.9) mg/dL Total Protein 9.0 H (6.4-8.2) g/dL Albumin 3.2 L (3.4-5.0) g/dL Globulin 5.8 Albumin/Globulin Ratio 0.55 Procalcitonin (0.1-0.50) ng/mL 04/08/21 04/08/21 04/08/21 Range/Units 15:40 15:40 15:40 WBC 7.0 (4.0-10.0) x10^3/uL RBC 4.50 (4.00-5.50) x10^6/uL Hgb 14.7 (12.0-16.0) g/dL Hct 42.6 (33.0-47.0) % MCV 94.7 H (78.0-93.0) fL MCH 32.7 H (26.0-32.0) pg MCHC 34.5 (32.0-36.0) g/dL RDW Coeff of Irene 12.2 (10.0-15.0) % Plt Count 183 (130-400) x10^3/uL Immature Gran % (Auto) 0.60 H (0.00-0.43) % Neut % (Auto) 76.7 (50.0-80.0) % Lymph % (Auto) 14.5 L (25.0-50.0) % [place] % (Auto) 7.9 (2.0-11.0) % Eos % (Auto) 0.0 (0.0-4.0) % Baso % (Auto) 0.3 (0.2-1.2) % Neut # (Auto) 5.4 (1.8-7.7) x10^3/uL Lymph # (Auto) 1.0 (1.0-4.8) x10^3/uL [place] # (Auto) 0.6 (0.0-0.8) x10^3/uL Eos # (Auto) 0.0 (0.0-0.5) x10^3/uL Baso # (Auto) 0.0 (0.0-0.2) x10^3/uL Immature Gran # (Auto) 0.04 (0.00-0.07) x10^3/uL PT (9.9-12.5) SEC INR (2.0-3.5) APTT (25.6-32.8) SEC D-Dimer, Quantitative 1.49 H (<=0.58) mg/LFEU POC VBG pH (7.33-7.43) pH POC VBG pCO2 (41-51) mmHg POC VBG pO2 mmHg POC VBG HCO3 (22-29) mmol/L POC Venous O2 Sat % VBG Base Excess (-(2)-3) mmol/L POC FiO2 Sodium (136-145) mmol/L Potassium (3.5-5.1) mmol/L Chloride (98-107) mmol/L Carbon Dioxide (21-32) mmol/L POC Venous Total CO2 (23-30) mmol/L Anion Gap (5-15) mmol/L BUN (7-18) mg/dL Creatinine (0.55-1.02) mg/dL Est Cr Clr Drug Dosing mL/min Estimated GFR (MDRD) Glucose (70-99) mg/dL Lactic Acid (0.4-2.0) mmol/L Calcium (8.5-10.1) mg/dL Ferritin 589 H (8-252) ng/mL Total Bilirubin (0.2-1.0) mg/dL Direct Bilirubin (0.00-0.20) mg/dL Indirect Bilirubin AST (15-37) U/L ALT (14-59) U/L Alkaline Phosphatase (46-116) U/L Lactate Dehydrogenase (81-234) U/L Creatine Kinase (26-192) U/L C-Reactive Protein (<=0.9) mg/dL Total Protein (6.4-8.2) g/dL Albumin (3.4-5.0) g/dL Globulin Albumin/Globulin Ratio Procalcitonin (0.1-0.50) ng/mL 04/08/21 04/08/21 Range/Units 15:40 16:01 WBC (4.0-10.0) x10^3/uL RBC (4.00-5.50) x10^6/uL Hgb (12.0-16.0) g/dL Hct (33.0-47.0) % MCV (78.0-93.0) fL MCH (26.0-32.0) pg MCHC (32.0-36.0) g/dL RDW Coeff of Irene (10.0-15.0) % Plt Count (130-400) x10^3/uL Immature Gran % (Auto) (0.00-0.43) % Neut % (Auto) (50.0-80.0) % Lymph % (Auto) (25.0-50.0) % [place] % (Auto) (2.0-11.0) % Eos % (Auto) (0.0-4.0) % Baso % (Auto) (0.2-1.2) % Neut # (Auto) (1.8-7.7) x10^3/uL Lymph # (Auto) (1.0-4.8) x10^3/uL [place] # (Auto) (0.0-0.8) x10^3/uL Eos # (Auto) (0.0-0.5) x10^3/uL Baso # (Auto) (0.0-0.2) x10^3/uL Immature Gran # (Auto) (0.00-0.07) x10^3/uL PT (9.9-12.5) SEC INR (2.0-3.5) APTT (25.6-32.8) SEC D-Dimer, Quantitative (<=0.58) mg/LFEU POC VBG pH 7.42 (7.33-7.43) pH POC VBG pCO2 38 L (41-51) mmHg POC VBG pO2 59 mmHg POC VBG HCO3 25 (22-29) mmol/L POC Venous O2 Sat 91 % VBG Base Excess 0 (-(2)-3) mmol/L POC FiO2 32 Sodium (136-145) mmol/L Potassium (3.5-5.1) mmol/L Chloride (98-107) mmol/L Carbon Dioxide (21-32) mmol/L POC Venous Total CO2 25 (23-30) mmol/L Anion Gap (5-15) mmol/L BUN (7-18) mg/dL Creatinine (0.55-1.02) mg/dL Est Cr Clr Drug Dosing mL/min Estimated GFR (MDRD) Glucose (70-99) mg/dL Lactic Acid (0.4-2.0) mmol/L Calcium (8.5-10.1) mg/dL Ferritin (8-252) ng/mL Total Bilirubin (0.2-1.0) mg/dL Direct Bilirubin (0.00-0.20) mg/dL Indirect Bilirubin AST (15-37) U/L ALT (14-59) U/L Alkaline Phosphatase (46-116) U/L Lactate Dehydrogenase (81-234) U/L Creatine Kinase (26-192) U/L C-Reactive Protein (<=0.9) mg/dL Total Protein (6.4-8.2) g/dL Albumin (3.4-5.0) g/dL Globulin Albumin/Globulin Ratio Procalcitonin < 0.05 L (0.1-0.50) ng/mL Meds: Medications Generic Name Dose Route Start Last Admin Trade Name Freq PRN Reason Stop Dose Admin Acetaminophen 650 mg 04/08/21 15:17 04/08/21 15:32 Acetaminophen 325 Mg Tab PO 650 mg Q4H PRN Administration Fever Greater Than 101 Albuterol 0 gm 04/08/21 18:19 Albuterol Hfa 18 Gm Inhaler INH Q4H PRN Shortness of Breath Dexamethasone 2 mg/ 6 mg 04/09/21 15:00 Dexamethasone 4 mg PO 04/13/21 15:01 DAILY [facility] Enoxaparin Sodium 40 mg 04/09/21 12:00 Enoxaparin 40 Mg/0.4 Ml Syringe SUBCUT 1200 [facility] Remdesivir 100 mg/ Sodium 100 mls @ 100 mls/hr 04/09/21 15:00 Chloride IV 04/12/21 15:59 Q24H [facility] Ibuprofen 600 mg 04/08/21 18:13 Ibuprofen 200 Mg Tab PO Q6H PRN Pain (mild 1-3) Ondansetron HCl 4 mg 04/08/21 18:13 Ondansetron 4 Mg Tab.Dis PO Q4H PRN nausea, able to take PO Discontinued Medications Generic Name Dose Route Start Last Admin Trade Name Freq PRN Reason Stop Dose Admin Dexamethasone 2 mg/ 6 mg 04/09/21 08:00 Dexamethasone 4 mg PO 04/18/21 08:01 DAILY [facility] Dexamethasone 2 mg/ 6 mg 04/08/21 15:32 04/08/21 15:38 Dexamethasone 4 mg PO 04/08/21 15:33 6 mg ONETIME ONE Administration Remdesivir 200 mg/ Sodium 250 mls @ 250 mls/hr 04/08/21 15:17 04/08/21 15:32 Chloride IV 04/08/21 16:16 250 mls/hr ONETIME ONE Administration Iopamidol 100 ml 04/08/21 17:03 Iopamidol 755 Mg/Ml 100 Ml Bottle IVPUSH 04/08/21 17:04 ONETIME ONE - Radiology Interpretation Free Text/Narrative:: extensive bilateral pneumonia noted on chest x-ray. CTA chest obtained due to + d dimer. Results are still pending. Departure - Departure Time of Disposition: 18:30 Disposition: Admitted As Inpatient 68 Clinical Impression: Pneumonia due to COVID-19 virus - Discharge Information Sepsis Event Note (ED) - Focused Exam Vital Signs: Vital Signs Temp Temp Pulse Resp BP Pulse Ox 04/08/21 15:32 38.8 C H 04/08/21 14:45 38.8 C H 107 H 28 H 133/63 83 L - Problem List Review Problem List Initiated/Reviewed/Updated: Yes - My Orders Last 24 Hours: My Active Orders 04/08/21 15:17 Cardiac Monitoring [RC] . DIRECTED RT Incentive Spirometry [RC] ASDIRECTED Acetaminophen [TylenoL] 650 mg PO Q4H PRN Isolation [COMM] Stat 04/08/21 15:40 CULTURE BLOOD [BC] Stat 04/08/21 15:45 CULTURE BLOOD [BC] Stat 04/08/21 16:17 PE Chest [Ang Chest] [CT] Stat 04/08/21 18:10 Patient Status [ADT] Routine - Assessment/Plan Last 24 Hours: My Active Orders 04/08/21 15:17 Cardiac Monitoring [RC] . DIRECTED RT Incentive Spirometry [RC] ASDIRECTED Acetaminophen [TylenoL] 650 mg PO Q4H PRN Isolation [COMM] Stat 04/08/21 15:40 CULTURE BLOOD [BC] Stat 04/08/21 15:45 CULTURE BLOOD [BC] Stat 04/08/21 16:17 PE Chest [Ang Chest] [CT] Stat 04/08/21 18:10 Patient Status [ADT] Routine Plan: Pt. will be admitted acutely by Dr. Miranda for Dr. Roberts. She is a code 1. Pt. was given loading dose of remdesivir 200mg in ER and started on dexamethasone 6mg once daily.
[2021-04-08] MEDS: Acetaminophen 325 MG Tab PO PRN ×2 (15:32→20:24)
[2021-04-08] MEDS ORDERED: dexAMETHasone 2 MG, dexAMETHasone 4 MG PO ONE ×2 (15:32)
[2021-04-08 16:13] LABS: PTT,PARTIAL THROMBOPLSTIN TIME 27.4 SEC (25.6-32.8)
[2021-04-08 16:26] LABS: CHLORIDE,CL 98 mmol/L (98-107); SODIUM,NA 135 mmol/L (136-145)
[2021-04-08 16:29] LABS: ANION GAP 15.9 mmol/L (5-15)
--- NOTE | 2021-04-08 16:32 | CR ---
[id number] RAD/RAD Chest PA or AP 1V EXAM: SINGLE VIEW CHEST. INDICATION: DIFFICULTY BREATHING COMPARISON: NO PREVIOUS SIMILAR EXAM IS AVAILABLE FINDINGS: Extensive bilateral infiltrates are seen The cardiac silhouette is prominent The mediastinum is also prominent IMPRESSION: EXTENSIVE BILATERAL PNEUMONIA Marcos London MD 04/08/21 [id number] Thank you for allowing us to participate in the care of your patient.
[2021-04-08] MEDS ORDERED: Iopamidol 755 Mg/ML 100 ML Bottle IVPUSH ONE (17:03)
--- NOTE | 2021-04-08 17:29 | PCM.HP.2 ---
H&P History of Present Illness - General Date of Service: 04/08/21 Admit Problem/Dx: COVID pneumonia Source of Information: Patient, Old Records, Provider History Limitations: Reports: No Limitations - History of Present Illness Initial Comments - Free Text/Narative: Susan is a 35-year-old female with past medical history of asthma, obesity, tobacco use disorder who presented to the ER today for increasing shortness of breath. She was recently evaluated in the clinic on April 01, 2021 for nausea, headache, fevers as well as chest congestion for 2-3 days duration (symptoms start on March 29, 2021). Was ultimately diagnosed with COVID-19. Given her risk factors it was suggested that she receive monoclonal antibody therapy. Patient did not follow-up on the suggestion. She presented to the ER today in hopes to receive BAM therapy but upon arrival was found to have an oxygen saturation of 83% requiring 2 L of O2 per nasal cannula, fever of 101.9, respiratory rate of 28, pulse of 107. Her CBC was relatively normal. D-dimer was mildly positive at 1.49. Electrolytes were normal, anion gap slightly elevated at 15.9. Ferritin was 589, LDH 484, CRP 15.2. Pro-Bandar was less than 0.05. Her chest x-ray did show diffuse pneumonia throughout the bilateral lungs. Symptoms at time include cough, congestion, SOB, loss of taste, LH, poor appetite, fatigue/malaise. Given her hypoxia and ongoing symptoms decision was made to admit her for antiviral therapy as well as steroids for treatment of the Covid pneumonia. - Related Data Allergies/Adverse Reactions: Allergies Allergy/AdvReac Type Severity Reaction Status Date / Time No Known Allergies Allergy Verified 04/08/21 15:17 Home Medications: Home Meds . 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 - Infectious Disease History Infectious Disease History: Reports: None - Past Surgical History GI Surgical History: Reports: Cholecystectomy Female Surgical History: Reports: Section Social & Family History - Family History Family Medical History: No Pertinent Family History - Tobacco Use Tobacco Use Status *Q: Never Tobacco User - Recreational Drug Use Recreational Drug Use: No H&P Review of Systems - Review of Systems: Review Of Systems: See Below General: Reports: Fever, Chills, Malaise HEENT: Reports: No Symptoms Pulmonary: Reports: Shortness of Breath, Cough Cardiovascular: Reports: No Symptoms Gastrointestinal: Reports: No Symptoms Genitourinary: Reports: No Symptoms Musculoskeletal: Reports: No Symptoms Skin: Reports: No Symptoms Neurological: Reports: No Symptoms Hematologic/Lymphatic: Reports: No Symptoms Immunologic: Reports: No Symptoms Exam - Exam Exam: See Below - Vital Signs Vital Signs: Last Vital Signs Temp 101.9 F H 04/08/21 15:32 Pulse 107 H 04/08/21 14:45 Resp 28 H 04/08/21 14:45 BP 133/63 04/08/21 14:45 Pulse Ox 83 L 04/08/21 14:45 Weight: 300 lb - Exam Quality Assessment: Supplemental Oxygen (2L per NC) General: Alert, Oriented, Cooperative, Mild Distress HEENT: Mucosa Moist & Prien Neck: Supple Lungs: Crackles (diffuse) Cardiovascular: Regular Rate, Regular Rhythm GI/Abdominal Exam: Normal Bowel Sounds, Soft, Non-Tender Extremities: Normal Inspection, Non-Tender, No Pedal Edema Skin: Warm, Dry Neurological: Cranial Nerves Intact Neuro Extensive - Mental Status: Alert, Oriented x3, Normal Mood/Affect Psychiatric: Alert, Normal Affect, Normal Mood - Patient Data Lab Results Last 24 hrs: Laboratory Results - last 24 hr 04/08/21 04/08/21 04/08/21 Range/Units 15:40 15:40 15:40 WBC (4.0-10.0) x10^3/uL RBC (4.00-5.50) x10^6/uL Hgb (12.0-16.0) g/dL Hct (33.0-47.0) % MCV (78.0-93.0) fL MCH (26.0-32.0) pg MCHC (32.0-36.0) g/dL RDW Coeff of Irene (10.0-15.0) % Plt Count (130-400) x10^3/uL Immature Gran % (Auto) (0.00-0.43) % Neut % (Auto) (50.0-80.0) % Lymph % (Auto) (25.0-50.0) % Carson % (Auto) (2.0-11.0) % Eos % (Auto) (0.0-4.0) % Baso % (Auto) (0.2-1.2) % Neut # (Auto) (1.8-7.7) x10^3/uL Lymph # (Auto) (1.0-4.8) x10^3/uL Carson # (Auto) (0.0-0.8) x10^3/uL Eos # (Auto) (0.0-0.5) x10^3/uL Baso # (Auto) (0.0-0.2) x10^3/uL Immature Gran # (Auto) (0.00-0.07) x10^3/uL PT 10.3 (9.9-12.5) SEC INR 0.9 L (2.0-3.5) APTT 27.4 (25.6-32.8) SEC D-Dimer, Quantitative (<=0.58) mg/LFEU POC VBG pH (7.33-7.43) pH POC VBG pCO2 (41-51) mmHg POC VBG pO2 mmHg POC VBG HCO3 (22-29) mmol/L POC Venous O2 Sat % VBG Base Excess (-(2)-3) mmol/L POC FiO2 Sodium 135 L (136-145) mmol/L Potassium 3.9 (3.5-5.1) mmol/L Chloride 98 (98-107) mmol/L Carbon Dioxide 25 (21-32) mmol/L POC Venous Total CO2 (23-30) mmol/L Anion Gap 15.9 H (5-15) mmol/L BUN 9 (7-18) mg/dL Creatinine 0.9 (0.55-1.02) mg/dL Est Cr Clr Drug Dosing 76.77 mL/min Estimated GFR (MDRD) > 60 Glucose 107 H (70-99) mg/dL Lactic Acid 1.3 (0.4-2.0) mmol/L Calcium 8.7 (8.5-10.1) mg/dL Ferritin (8-252) ng/mL Total Bilirubin 0.5 (0.2-1.0) mg/dL Direct Bilirubin 0.24 H (0.00-0.20) mg/dL Indirect Bilirubin 0.26 AST 58 H (15-37) U/L ALT 33 (14-59) U/L Alkaline Phosphatase 57 (46-116) U/L Lactate Dehydrogenase 484 H (81-234) U/L Creatine Kinase 214 H* (26-192) U/L C-Reactive Protein 15.2 H (<=0.9) mg/dL Total Protein 9.0 H (6.4-8.2) g/dL Albumin 3.2 L (3.4-5.0) g/dL Globulin 5.8 Albumin/Globulin Ratio 0.55 Procalcitonin (0.1-0.50) ng/mL 04/08/21 04/08/21 04/08/21 Range/Units 15:40 15:40 15:40 WBC 7.0 (4.0-10.0) x10^3/uL RBC 4.50 (4.00-5.50) x10^6/uL Hgb 14.7 (12.0-16.0) g/dL Hct 42.6 (33.0-47.0) % MCV 94.7 H (78.0-93.0) fL MCH 32.7 H (26.0-32.0) pg MCHC 34.5 (32.0-36.0) g/dL RDW Coeff of Irene 12.2 (10.0-15.0) % Plt Count 183 (130-400) x10^3/uL Immature Gran % (Auto) 0.60 H (0.00-0.43) % Neut % (Auto) 76.7 (50.0-80.0) % Lymph % (Auto) 14.5 L (25.0-50.0) % Carson % (Auto) 7.9 (2.0-11.0) % Eos % (Auto) 0.0 (0.0-4.0) % Baso % (Auto) 0.3 (0.2-1.2) % Neut # (Auto) 5.4 (1.8-7.7) x10^3/uL Lymph # (Auto) 1.0 (1.0-4.8) x10^3/uL Carson # (Auto) 0.6 (0.0-0.8) x10^3/uL Eos # (Auto) 0.0 (0.0-0.5) x10^3/uL Baso # (Auto) 0.0 (0.0-0.2) x10^3/uL Immature Gran # (Auto) 0.04 (0.00-0.07) x10^3/uL PT (9.9-12.5) SEC INR (2.0-3.5) APTT (25.6-32.8) SEC D-Dimer, Quantitative 1.49 H (<=0.58) mg/LFEU POC VBG pH (7.33-7.43) pH POC VBG pCO2 (41-51) mmHg POC VBG pO2 mmHg POC VBG HCO3 (22-29) mmol/L POC Venous O2 Sat % VBG Base Excess (-(2)-3) mmol/L POC FiO2 Sodium (136-145) mmol/L Potassium (3.5-5.1) mmol/L Chloride (98-107) mmol/L Carbon Dioxide (21-32) mmol/L POC Venous Total CO2 (23-30) mmol/L Anion Gap (5-15) mmol/L BUN (7-18) mg/dL Creatinine (0.55-1.02) mg/dL Est Cr Clr Drug Dosing mL/min Estimated GFR (MDRD) Glucose (70-99) mg/dL Lactic Acid (0.4-2.0) mmol/L Calcium (8.5-10.1) mg/dL Ferritin 589 H (8-252) ng/mL Total Bilirubin (0.2-1.0) mg/dL Direct Bilirubin (0.00-0.20) mg/dL Indirect Bilirubin AST (15-37) U/L ALT (14-59) U/L Alkaline Phosphatase (46-116) U/L Lactate Dehydrogenase (81-234) U/L Creatine Kinase (26-192) U/L C-Reactive Protein (<=0.9) mg/dL Total Protein (6.4-8.2) g/dL Albumin (3.4-5.0) g/dL Globulin Albumin/Globulin Ratio Procalcitonin (0.1-0.50) ng/mL 04/08/21 04/08/21 Range/Units 15:40 16:01 WBC (4.0-10.0) x10^3/uL RBC (4.00-5.50) x10^6/uL Hgb (12.0-16.0) g/dL Hct (33.0-47.0) % MCV (78.0-93.0) fL MCH (26.0-32.0) pg MCHC (32.0-36.0) g/dL RDW Coeff of Irene (10.0-15.0) % Plt Count (130-400) x10^3/uL Immature Gran % (Auto) (0.00-0.43) % Neut % (Auto) (50.0-80.0) % Lymph % (Auto) (25.0-50.0) % Carson % (Auto) (2.0-11.0) % Eos % (Auto) (0.0-4.0) % Baso % (Auto) (0.2-1.2) % Neut # (Auto) (1.8-7.7) x10^3/uL Lymph # (Auto) (1.0-4.8) x10^3/uL Carson # (Auto) (0.0-0.8) x10^3/uL Eos # (Auto) (0.0-0.5) x10^3/uL Baso # (Auto) (0.0-0.2) x10^3/uL Immature Gran # (Auto) (0.00-0.07) x10^3/uL PT (9.9-12.5) SEC INR (2.0-3.5) APTT (25.6-32.8) SEC D-Dimer, Quantitative (<=0.58) mg/LFEU POC VBG pH 7.42 (7.33-7.43) pH POC VBG pCO2 38 L (41-51) mmHg POC VBG pO2 59 mmHg POC VBG HCO3 25 (22-29) mmol/L POC Venous O2 Sat 91 % VBG Base Excess 0 (-(2)-3) mmol/L POC FiO2 32 Sodium (136-145) mmol/L Potassium (3.5-5.1) mmol/L Chloride (98-107) mmol/L Carbon Dioxide (21-32) mmol/L POC Venous Total CO2 25 (23-30) mmol/L Anion Gap (5-15) mmol/L BUN (7-18) mg/dL Creatinine (0.55-1.02) mg/dL Est Cr Clr Drug Dosing mL/min Estimated GFR (MDRD) Glucose (70-99) mg/dL Lactic Acid (0.4-2.0) mmol/L Calcium (8.5-10.1) mg/dL Ferritin (8-252) ng/mL Total Bilirubin (0.2-1.0) mg/dL Direct Bilirubin (0.00-0.20) mg/dL Indirect Bilirubin AST (15-37) U/L ALT (14-59) U/L Alkaline Phosphatase (46-116) U/L Lactate Dehydrogenase (81-234) U/L Creatine Kinase (26-192) U/L C-Reactive Protein (<=0.9) mg/dL Total Protein (6.4-8.2) g/dL Albumin (3.4-5.0) g/dL Globulin Albumin/Globulin Ratio Procalcitonin < 0.05 L (0.1-0.50) ng/mL Result Diagrams: 04/08/21 15:40 04/08/21 15:40 Sepsis Event Note - Focused Exam Vital Signs: Vital Signs Temp Temp Pulse Resp BP Pulse Ox 04/08/21 15:32 101.9 F H 04/08/21 14:45 101.9 F H 107 H 28 H 133/63 83 L - Problem List (1) COVID-19 SNOMED Code(s): 438560777 ICD Code: U07.1 - COVID-19 Status: Acute Current Visit: Yes (2) Acute respiratory failure with hypoxia SNOMED Code(s): 53236773, 097231340 ICD Code: J96.01 - ACUTE RESPIRATORY FAILURE WITH HYPOXIA Status: Acute Current Visit: Yes Problem List Initiated/Reviewed/Updated: Yes Orders Last 24hrs: Active Orders 24 hr Category Date Time Status Cardiac Monitoring [RC] . DIRECTED Care 04/08/21 15:17 Active RT Incentive Spirometry [RC] ASDIRECTED Care 04/08/21 15:17 Active PE Chest [Ang Chest] [CT] Stat Exams 04/08/21 16:17 Ordered CULTURE BLOOD [BC] Stat Lab 04/08/21 15:40 Received CULTURE BLOOD [BC] Stat Lab 04/08/21 15:45 Received HEPATIC FUNCTION PANEL,HFP [CHEM] DAILY Lab 04/09/21 15:30 Ordered HEPATIC FUNCTION PANEL,HFP [CHEM] DAILY Lab 04/10/21 15:30 Ordered HEPATIC FUNCTION PANEL,HFP [CHEM] DAILY Lab 04/11/21 15:30 Ordered HEPATIC FUNCTION PANEL,HFP [CHEM] DAILY Lab 04/12/21 15:30 Ordered Acetaminophen [TylenoL] Med 04/08/21 15:17 Active 650 mg PO Q4H PRN Isolation [COMM] Stat Oth 04/08/21 15:17 Ordered Medication Orders Acetaminophen (Acetaminophen 325 Mg Tab) 650 mg PO Q4H PRN PRN Reason: Fever Greater Than 101 Last Admin: 04/08/21 15:32 Dose: 650 mg Documented by: DARCI Assessment/Plan Comment:: COVID-19 Pneumonia Acute Hypoxic Respiratory Failure - Symptom onset 03/29/21 (now on day 10) - Worsening of symptoms requiring O2 - Non-vaccinated - Acute phase reactants elevated Plan: - Admit to inpatient - Remdesivir - Steroids - Monitoring of labs (CMP) daily - Supplemental O2, RT - Contact precautions - Albuterol prn for SOB/cough - Prone PRN - CT chest pending (mild positive D-dimer) Chronic: - Asthma: home albuterol prn - Obesity: hold phentermine, topamax Diet: Regular DVT: Lovenox SQ CODE: Full Disposition: Good given age. Admit to inpatient for treatment/monitoring of COVID pneumonia and hypoxia. Management as above. - Mortality Measure Prognosis:: Good
[2021-04-08] MEDS ORDERED: Ibuprofen 200 MG Tab PO PRN (18:13)
[2021-04-08] MEDS ORDERED: Albuterol HFA 18 Gm Inhaler INH PRN (18:19)
--- NOTE | 2021-04-08 19:10 | CT ---
[id number] CT/CTA Chest Exam: CTA Chest Clinical Data: POSITIVE D-DIMER COVID COMPARISON: NO PREVIOUS SIMILAR EXAM IS AVAILABLE FINDINGS: There are extensive bilateral infiltrates. Pulmonary artery opacification is suboptimal The study therefore is indeterminant A repeat exam is suggested One option would be to treat the patient for emboli and repeat the exam tomorrow IMPRESSION: INDETERMINATE STUDY CURRENTLY PULMONARY ARTERY OPACIFICATION IS SUBOPTIMAL EXTENSIVE BILATERAL PNEUMONIA Marcos London MD 04/08/21 [id number] Thank you for allowing us to participate in the care of your patient.
[2021-04-09] MEDS: Ondansetron 4 MG Tab.DIS PO PRN ×2 (04:18→20:00)
[2021-04-09 07:12] LABS: CHLORIDE,CL 100 mmol/L (98-107); SODIUM,NA 135 mmol/L (136-145)
[2021-04-09 07:13] LABS: ANION GAP 14.9 mmol/L (5-15)
[2021-04-09] MEDS ORDERED: dexAMETHasone 2 MG, dexAMETHasone 4 MG PO SCH ×2 (08:00)
[2021-04-09] MEDS ORDERED: Cyclobenzaprine 10 MG Tab PO PRN (08:22)
--- NOTE | 2021-04-09 08:30 | PCM.PN ---
- General Info Date of Service: 04/09/21 Subjective Update: 35 yo hospital day 2. Doing well other than not sleeping well. Appetite is poor, but she denies any N/V. Taste is not back to normal. Cough is intermittent and p roductive of clear sputum. Denies SOB. - Review of Systems General: Reports: Fatigue. Denies: Fever, Chills, Appetite HEENT: Reports: No Symptoms Pulmonary: Reports: Cough, Sputum (clear). Denies: Shortness of Breath Cardiovascular: Reports: No Symptoms Gastrointestinal: Reports: Decreased Appetite, Diarrhea Genitourinary: Reports: No Symptoms Musculoskeletal: Reports: No Symptoms Skin: Reports: No Symptoms Neurological: Reports: No Symptoms - Patient Data Vitals - Most Recent: Last Vital Signs Temp 37.2 C 04/09/21 05:53 Pulse 70 04/09/21 05:53 Resp 20 04/09/21 05:53 BP 117/77 04/09/21 05:53 Pulse Ox 92 L 04/09/21 07:13 Weight - Most Recent: 136.078 kg I&O - Last 24 Hours: Intake & Output 04/08/21 04/09/21 04/09/21 22:59 06:59 14:59 Intake Total 220 200 Balance 220 200 Lab Results Last 24 Hours: Laboratory Results - last 24 hr 04/08/21 04/08/21 04/08/21 Range/Units 15:40 15:40 15:40 WBC (4.0-10.0) x10^3/uL RBC (4.00-5.50) x10^6/uL Hgb (12.0-16.0) g/dL Hct (33.0-47.0) % MCV (78.0-93.0) fL MCH (26.0-32.0) pg MCHC (32.0-36.0) g/dL RDW Coeff of Irene (10.0-15.0) % Plt Count (130-400) x10^3/uL Immature Gran % (Auto) (0.00-0.43) % Neut % (Auto) (50.0-80.0) % Lymph % (Auto) (25.0-50.0) % [place] % (Auto) (2.0-11.0) % Eos % (Auto) (0.0-4.0) % Baso % (Auto) (0.2-1.2) % Neut # (Auto) (1.8-7.7) x10^3/uL Lymph # (Auto) (1.0-4.8) x10^3/uL [place] # (Auto) (0.0-0.8) x10^3/uL Eos # (Auto) (0.0-0.5) x10^3/uL Baso # (Auto) (0.0-0.2) x10^3/uL Immature Gran # (Auto) (0.00-0.07) x10^3/uL PT 10.3 (9.9-12.5) SEC INR 0.9 L (2.0-3.5) APTT 27.4 (25.6-32.8) SEC D-Dimer, Quantitative (<=0.58) mg/LFEU POC VBG pH (7.33-7.43) pH POC VBG pCO2 (41-51) mmHg POC VBG pO2 mmHg POC VBG HCO3 (22-29) mmol/L POC Venous O2 Sat % VBG Base Excess (-(2)-3) mmol/L POC FiO2 Sodium 135 L (136-145) mmol/L Potassium 3.9 (3.5-5.1) mmol/L Chloride 98 (98-107) mmol/L Carbon Dioxide 25 (21-32) mmol/L POC Venous Total CO2 (23-30) mmol/L Anion Gap 15.9 H (5-15) mmol/L BUN 9 (7-18) mg/dL Creatinine 0.9 (0.55-1.02) mg/dL Est Cr Clr Drug Dosing 76.77 mL/min Estimated GFR (MDRD) > 60 Glucose 107 H (70-99) mg/dL Lactic Acid 1.3 (0.4-2.0) mmol/L Calcium 8.7 (8.5-10.1) mg/dL Corrected Calcium (8.5-10.1) mg/dL Ferritin (8-252) ng/mL Total Bilirubin 0.5 (0.2-1.0) mg/dL Direct Bilirubin 0.24 H (0.00-0.20) mg/dL Indirect Bilirubin 0.26 AST 58 H (15-37) U/L ALT 33 (14-59) U/L Alkaline Phosphatase 57 (46-116) U/L Lactate Dehydrogenase 484 H (81-234) U/L Creatine Kinase 214 H* (26-192) U/L C-Reactive Protein 15.2 H (<=0.9) mg/dL Total Protein 9.0 H (6.4-8.2) g/dL Albumin 3.2 L (3.4-5.0) g/dL Globulin 5.8 Albumin/Globulin Ratio 0.55 Procalcitonin (0.1-0.50) ng/mL 04/08/21 04/08/21 04/08/21 Range/Units 15:40 15:40 15:40 WBC 7.0 (4.0-10.0) x10^3/uL RBC 4.50 (4.00-5.50) x10^6/uL Hgb 14.7 (12.0-16.0) g/dL Hct 42.6 (33.0-47.0) % MCV 94.7 H (78.0-93.0) fL MCH 32.7 H (26.0-32.0) pg MCHC 34.5 (32.0-36.0) g/dL RDW Coeff of Irene 12.2 (10.0-15.0) % Plt Count 183 (130-400) x10^3/uL Immature Gran % (Auto) 0.60 H (0.00-0.43) % Neut % (Auto) 76.7 (50.0-80.0) % Lymph % (Auto) 14.5 L (25.0-50.0) % [place] % (Auto) 7.9 (2.0-11.0) % Eos % (Auto) 0.0 (0.0-4.0) % Baso % (Auto) 0.3 (0.2-1.2) % Neut # (Auto) 5.4 (1.8-7.7) x10^3/uL Lymph # (Auto) 1.0 (1.0-4.8) x10^3/uL [place] # (Auto) 0.6 (0.0-0.8) x10^3/uL Eos # (Auto) 0.0 (0.0-0.5) x10^3/uL Baso # (Auto) 0.0 (0.0-0.2) x10^3/uL Immature Gran # (Auto) 0.04 (0.00-0.07) x10^3/uL PT (9.9-12.5) SEC INR (2.0-3.5) APTT (25.6-32.8) SEC D-Dimer, Quantitative 1.49 H (<=0.58) mg/LFEU POC VBG pH (7.33-7.43) pH POC VBG pCO2 (41-51) mmHg POC VBG pO2 mmHg POC VBG HCO3 (22-29) mmol/L POC Venous O2 Sat % VBG Base Excess (-(2)-3) mmol/L POC FiO2 Sodium (136-145) mmol/L Potassium (3.5-5.1) mmol/L Chloride (98-107) mmol/L Carbon Dioxide (21-32) mmol/L POC Venous Total CO2 (23-30) mmol/L Anion Gap (5-15) mmol/L BUN (7-18) mg/dL Creatinine (0.55-1.02) mg/dL Est Cr Clr Drug Dosing mL/min Estimated GFR (MDRD) Glucose (70-99) mg/dL Lactic Acid (0.4-2.0) mmol/L Calcium (8.5-10.1) mg/dL Corrected Calcium (8.5-10.1) mg/dL Ferritin 589 H (8-252) ng/mL Total Bilirubin (0.2-1.0) mg/dL Direct Bilirubin (0.00-0.20) mg/dL Indirect Bilirubin AST (15-37) U/L ALT (14-59) U/L Alkaline Phosphatase (46-116) U/L Lactate Dehydrogenase (81-234) U/L Creatine Kinase (26-192) U/L C-Reactive Protein (<=0.9) mg/dL Total Protein (6.4-8.2) g/dL Albumin (3.4-5.0) g/dL Globulin Albumin/Globulin Ratio Procalcitonin (0.1-0.50) ng/mL 04/08/21 04/08/21 04/09/21 Range/Units 15:40 16:01 06:43 WBC 3.6 L (4.0-10.0) x10^3/uL RBC 4.34 (4.00-5.50) x10^6/uL Hgb 13.5 (12.0-16.0) g/dL Hct 41.2 (33.0-47.0) % MCV 94.9 H (78.0-93.0) fL MCH 31.1 (26.0-32.0) pg MCHC 32.8 (32.0-36.0) g/dL RDW Coeff of Irene 12.0 (10.0-15.0) % Plt Count 210 (130-400) x10^3/uL Immature Gran % (Auto) (0.00-0.43) % Neut % (Auto) (50.0-80.0) % Lymph % (Auto) (25.0-50.0) % [place] % (Auto) (2.0-11.0) % Eos % (Auto) (0.0-4.0) % Baso % (Auto) (0.2-1.2) % Neut # (Auto) (1.8-7.7) x10^3/uL Lymph # (Auto) (1.0-4.8) x10^3/uL [place] # (Auto) (0.0-0.8) x10^3/uL Eos # (Auto) (0.0-0.5) x10^3/uL Baso # (Auto) (0.0-0.2) x10^3/uL Immature Gran # (Auto) (0.00-0.07) x10^3/uL PT (9.9-12.5) SEC INR (2.0-3.5) APTT (25.6-32.8) SEC D-Dimer, Quantitative (<=0.58) mg/LFEU POC VBG pH 7.42 (7.33-7.43) pH POC VBG pCO2 38 L (41-51) mmHg POC VBG pO2 59 mmHg POC VBG HCO3 25 (22-29) mmol/L POC Venous O2 Sat 91 % VBG Base Excess 0 (-(2)-3) mmol/L POC FiO2 32 Sodium (136-145) mmol/L Potassium (3.5-5.1) mmol/L Chloride (98-107) mmol/L Carbon Dioxide (21-32) mmol/L POC Venous Total CO2 25 (23-30) mmol/L Anion Gap (5-15) mmol/L BUN (7-18) mg/dL Creatinine (0.55-1.02) mg/dL Est Cr Clr Drug Dosing mL/min Estimated GFR (MDRD) Glucose (70-99) mg/dL Lactic Acid (0.4-2.0) mmol/L Calcium (8.5-10.1) mg/dL Corrected Calcium (8.5-10.1) mg/dL Ferritin (8-252) ng/mL Total Bilirubin (0.2-1.0) mg/dL Direct Bilirubin (0.00-0.20) mg/dL Indirect Bilirubin AST (15-37) U/L ALT (14-59) U/L Alkaline Phosphatase (46-116) U/L Lactate Dehydrogenase (81-234) U/L Creatine Kinase (26-192) U/L C-Reactive Protein (<=0.9) mg/dL Total Protein (6.4-8.2) g/dL Albumin (3.4-5.0) g/dL Globulin Albumin/Globulin Ratio Procalcitonin < 0.05 L (0.1-0.50) ng/mL 04/09/21 Range/Units 06:43 WBC (4.0-10.0) x10^3/uL RBC (4.00-5.50) x10^6/uL Hgb (12.0-16.0) g/dL Hct (33.0-47.0) % MCV (78.0-93.0) fL MCH (26.0-32.0) pg MCHC (32.0-36.0) g/dL RDW Coeff of Irene (10.0-15.0) % Plt Count (130-400) x10^3/uL Immature Gran % (Auto) (0.00-0.43) % Neut % (Auto) (50.0-80.0) % Lymph % (Auto) (25.0-50.0) % [place] % (Auto) (2.0-11.0) % Eos % (Auto) (0.0-4.0) % Baso % (Auto) (0.2-1.2) % Neut # (Auto) (1.8-7.7) x10^3/uL Lymph # (Auto) (1.0-4.8) x10^3/uL [place] # (Auto) (0.0-0.8) x10^3/uL Eos # (Auto) (0.0-0.5) x10^3/uL Baso # (Auto) (0.0-0.2) x10^3/uL Immature Gran # (Auto) (0.00-0.07) x10^3/uL PT (9.9-12.5) SEC INR (2.0-3.5) APTT (25.6-32.8) SEC D-Dimer, Quantitative (<=0.58) mg/LFEU POC VBG pH (7.33-7.43) pH POC VBG pCO2 (41-51) mmHg POC VBG pO2 mmHg POC VBG HCO3 (22-29) mmol/L POC Venous O2 Sat % VBG Base Excess (-(2)-3) mmol/L POC FiO2 Sodium 135 L (136-145) mmol/L Potassium 3.9 (3.5-5.1) mmol/L Chloride 100 (98-107) mmol/L Carbon Dioxide 24 (21-32) mmol/L POC Venous Total CO2 (23-30) mmol/L Anion Gap 14.9 (5-15) mmol/L BUN 16 (7-18) mg/dL Creatinine 0.8 (0.55-1.02) mg/dL Est Cr Clr Drug Dosing 86.37 mL/min Estimated GFR (MDRD) > 60 Glucose 150 H (70-99) mg/dL Lactic Acid (0.4-2.0) mmol/L Calcium 8.7 (8.5-10.1) mg/dL Corrected Calcium 9.5 (8.5-10.1) mg/dL Ferritin (8-252) ng/mL Total Bilirubin 0.4 (0.2-1.0) mg/dL Direct Bilirubin (0.00-0.20) mg/dL Indirect Bilirubin AST 44 H (15-37) U/L ALT 29 (14-59) U/L Alkaline Phosphatase 52 (46-116) U/L Lactate Dehydrogenase (81-234) U/L Creatine Kinase (26-192) U/L C-Reactive Protein (<=0.9) mg/dL Total Protein 8.5 H (6.4-8.2) g/dL Albumin 3.0 L (3.4-5.0) g/dL Globulin 5.5 Albumin/Globulin Ratio 0.55 Procalcitonin (0.1-0.50) ng/mL Med Orders - Current: Current Medications Acetaminophen (Acetaminophen 325 Mg Tab) 650 mg PO Q4H PRN PRN Reason: Fever Greater Than 101 Last Admin: 04/08/21 20:24 Dose: 650 mg Documented by: Albuterol (Albuterol Hfa 18 Gm Inhaler) 0 gm INH Q4H PRN PRN Reason: Shortness of Breath Last Admin: 04/09/21 04:18 Dose: 2 puff Documented by: Cyclobenzaprine HCl (Cyclobenzaprine 10 Mg Tab) 5 mg PO Q8H PRN PRN Reason: muscle spasms Dexamethasone 2 mg/ (Dexamethasone 4 mg) 6 mg PO DAILY [facility] Stop: 04/13/21 15:01 Enoxaparin Sodium (Enoxaparin 40 Mg/0.4 Ml Syringe) 40 mg SUBCUT 1200 CHANCE Remdesivir 100 mg/ Sodium (Chloride) 100 mls @ 100 mls/hr IV Q24H [facility] Stop: 04/12/21 15:59 Ibuprofen (Ibuprofen 200 Mg Tab) 600 mg PO Q6H PRN PRN Reason: Pain (mild 1-3) Last Admin: 04/09/21 04:54 Dose: 600 mg Documented by: Ondansetron HCl (Ondansetron 4 Mg Tab.Dis) 4 mg PO Q4H PRN PRN Reason: nausea, able to take PO Last Admin: 04/09/21 04:18 Dose: 4 mg Documented by: Discontinued Medications Dexamethasone 2 mg/ (Dexamethasone 4 mg) 6 mg PO DAILY [facility] Stop: 04/18/21 08:01 Dexamethasone 2 mg/ (Dexamethasone 4 mg) 6 mg PO ONETIME ONE Stop: 04/08/21 15:33 Last Admin: 04/08/21 15:38 Dose: 6 mg Documented by: Remdesivir 200 mg/ Sodium (Chloride) 250 mls @ 250 mls/hr IV ONETIME ONE Stop: 04/08/21 16:16 Last Admin: 04/08/21 15:32 Dose: 250 mls/hr Documented by: Iopamidol (Iopamidol 755 Mg/Ml 100 Ml Bottle) 100 ml IVPUSH ONETIME ONE Stop: 04/08/21 17:04 Last Admin: 04/08/21 20:34 Dose: 100 ml Documented by: - Exam Quality Assessment: Supplemental Oxygen (4L) General: Alert, Oriented HEENT: Mucous Membr. Moist/[place] Neck: Supple Lungs: Crackles, Wheezing (throughout) Cardiovascular: Regular Rate, Regular Rhythm, No Murmurs GI/Abdominal Exam: Normal Bowel Sounds, Soft, Non-Tender Extremities: Normal Inspection, No Pedal Edema Peripheral Pulses: 2+: Radial (L), Radial (R) Skin: Warm, Dry, Intact Neurological: No New Focal Deficit Psy/Mental Status: Alert - Patient Data Lab Results Last 24 hrs: Laboratory Results - last 24 hr 04/08/21 04/08/21 04/08/21 Range/Units 15:40 15:40 15:40 WBC (4.0-10.0) x10^3/uL RBC (4.00-5.50) x10^6/uL Hgb (12.0-16.0) g/dL Hct (33.0-47.0) % MCV (78.0-93.0) fL MCH (26.0-32.0) pg MCHC (32.0-36.0) g/dL RDW Coeff of Irene (10.0-15.0) % Plt Count (130-400) x10^3/uL Immature Gran % (Auto) (0.00-0.43) % Neut % (Auto) (50.0-80.0) % Lymph % (Auto) (25.0-50.0) % [place] % (Auto) (2.0-11.0) % Eos % (Auto) (0.0-4.0) % Baso % (Auto) (0.2-1.2) % Neut # (Auto) (1.8-7.7) x10^3/uL Lymph # (Auto) (1.0-4.8) x10^3/uL [place] # (Auto) (0.0-0.8) x10^3/uL Eos # (Auto) (0.0-0.5) x10^3/uL Baso # (Auto) (0.0-0.2) x10^3/uL Immature Gran # (Auto) (0.00-0.07) x10^3/uL PT 10.3 (9.9-12.5) SEC INR 0.9 L (2.0-3.5) APTT 27.4 (25.6-32.8) SEC D-Dimer, Quantitative (<=0.58) mg/LFEU POC VBG pH (7.33-7.43) pH POC VBG pCO2 (41-51) mmHg POC VBG pO2 mmHg POC VBG HCO3 (22-29) mmol/L POC Venous O2 Sat % VBG Base Excess (-(2)-3) mmol/L POC FiO2 Sodium 135 L (136-145) mmol/L Potassium 3.9 (3.5-5.1) mmol/L Chloride 98 (98-107) mmol/L Carbon Dioxide 25 (21-32) mmol/L POC Venous Total CO2 (23-30) mmol/L Anion Gap 15.9 H (5-15) mmol/L BUN 9 (7-18) mg/dL Creatinine 0.9 (0.55-1.02) mg/dL Est Cr Clr Drug Dosing 76.77 mL/min Estimated GFR (MDRD) > 60 Glucose 107 H (70-99) mg/dL Lactic Acid 1.3 (0.4-2.0) mmol/L Calcium 8.7 (8.5-10.1) mg/dL Corrected Calcium (8.5-10.1) mg/dL Ferritin (8-252) ng/mL Total Bilirubin 0.5 (0.2-1.0) mg/dL Direct Bilirubin 0.24 H (0.00-0.20) mg/dL Indirect Bilirubin 0.26 AST 58 H (15-37) U/L ALT 33 (14-59) U/L Alkaline Phosphatase 57 (46-116) U/L Lactate Dehydrogenase 484 H (81-234) U/L Creatine Kinase 214 H* (26-192) U/L C-Reactive Protein 15.2 H (<=0.9) mg/dL Total Protein 9.0 H (6.4-8.2) g/dL Albumin 3.2 L (3.4-5.0) g/dL Globulin 5.8 Albumin/Globulin Ratio 0.55 Procalcitonin (0.1-0.50) ng/mL 04/08/21 04/08/21 04/08/21 Range/Units 15:40 15:40 15:40 WBC 7.0 (4.0-10.0) x10^3/uL RBC 4.50 (4.00-5.50) x10^6/uL Hgb 14.7 (12.0-16.0) g/dL Hct 42.6 (33.0-47.0) % MCV 94.7 H (78.0-93.0) fL MCH 32.7 H (26.0-32.0) pg MCHC 34.5 (32.0-36.0) g/dL RDW Coeff of Irene 12.2 (10.0-15.0) % Plt Count 183 (130-400) x10^3/uL Immature Gran % (Auto) 0.60 H (0.00-0.43) % Neut % (Auto) 76.7 (50.0-80.0) % Lymph % (Auto) 14.5 L (25.0-50.0) % [place] % (Auto) 7.9 (2.0-11.0) % Eos % (Auto) 0.0 (0.0-4.0) % Baso % (Auto) 0.3 (0.2-1.2) % Neut # (Auto) 5.4 (1.8-7.7) x10^3/uL Lymph # (Auto) 1.0 (1.0-4.8) x10^3/uL [place] # (Auto) 0.6 (0.0-0.8) x10^3/uL Eos # (Auto) 0.0 (0.0-0.5) x10^3/uL Baso # (Auto) 0.0 (0.0-0.2) x10^3/uL Immature Gran # (Auto) 0.04 (0.00-0.07) x10^3/uL PT (9.9-12.5) SEC INR (2.0-3.5) APTT (25.6-32.8) SEC D-Dimer, Quantitative 1.49 H (<=0.58) mg/LFEU POC VBG pH (7.33-7.43) pH POC VBG pCO2 (41-51) mmHg POC VBG pO2 mmHg POC VBG HCO3 (22-29) mmol/L POC Venous O2 Sat % VBG Base Excess (-(2)-3) mmol/L POC FiO2 Sodium (136-145) mmol/L Potassium (3.5-5.1) mmol/L Chloride (98-107) mmol/L Carbon Dioxide (21-32) mmol/L POC Venous Total CO2 (23-30) mmol/L Anion Gap (5-15) mmol/L BUN (7-18) mg/dL Creatinine (0.55-1.02) mg/dL Est Cr Clr Drug Dosing mL/min Estimated GFR (MDRD) Glucose (70-99) mg/dL Lactic Acid (0.4-2.0) mmol/L Calcium (8.5-10.1) mg/dL Corrected Calcium (8.5-10.1) mg/dL Ferritin 589 H (8-252) ng/mL Total Bilirubin (0.2-1.0) mg/dL Direct Bilirubin (0.00-0.20) mg/dL Indirect Bilirubin AST (15-37) U/L ALT (14-59) U/L Alkaline Phosphatase (46-116) U/L Lactate Dehydrogenase (81-234) U/L Creatine Kinase (26-192) U/L C-Reactive Protein (<=0.9) mg/dL Total Protein (6.4-8.2) g/dL Albumin (3.4-5.0) g/dL Globulin Albumin/Globulin Ratio Procalcitonin (0.1-0.50) ng/mL 04/08/21 04/08/21 04/09/21 Range/Units 15:40 16:01 06:43 WBC 3.6 L (4.0-10.0) x10^3/uL RBC 4.34 (4.00-5.50) x10^6/uL Hgb 13.5 (12.0-16.0) g/dL Hct 41.2 (33.0-47.0) % MCV 94.9 H (78.0-93.0) fL MCH 31.1 (26.0-32.0) pg MCHC 32.8 (32.0-36.0) g/dL RDW Coeff of Irene 12.0 (10.0-15.0) % Plt Count 210 (130-400) x10^3/uL Immature Gran % (Auto) (0.00-0.43) % Neut % (Auto) (50.0-80.0) % Lymph % (Auto) (25.0-50.0) % [place] % (Auto) (2.0-11.0) % Eos % (Auto) (0.0-4.0) % Baso % (Auto) (0.2-1.2) % Neut # (Auto) (1.8-7.7) x10^3/uL Lymph # (Auto) (1.0-4.8) x10^3/uL [place] # (Auto) (0.0-0.8) x10^3/uL Eos # (Auto) (0.0-0.5) x10^3/uL Baso # (Auto) (0.0-0.2) x10^3/uL Immature Gran # (Auto) (0.00-0.07) x10^3/uL PT (9.9-12.5) SEC INR (2.0-3.5) APTT (25.6-32.8) SEC D-Dimer, Quantitative (<=0.58) mg/LFEU POC VBG pH 7.42 (7.33-7.43) pH POC VBG pCO2 38 L (41-51) mmHg POC VBG pO2 59 mmHg POC VBG HCO3 25 (22-29) mmol/L POC Venous O2 Sat 91 % VBG Base Excess 0 (-(2)-3) mmol/L POC FiO2 32 Sodium (136-145) mmol/L Potassium (3.5-5.1) mmol/L Chloride (98-107) mmol/L Carbon Dioxide (21-32) mmol/L POC Venous Total CO2 25 (23-30) mmol/L Anion Gap (5-15) mmol/L BUN (7-18) mg/dL Creatinine (0.55-1.02) mg/dL Est Cr Clr Drug Dosing mL/min Estimated GFR (MDRD) Glucose (70-99) mg/dL Lactic Acid (0.4-2.0) mmol/L Calcium (8.5-10.1) mg/dL Corrected Calcium (8.5-10.1) mg/dL Ferritin (8-252) ng/mL Total Bilirubin (0.2-1.0) mg/dL Direct Bilirubin (0.00-0.20) mg/dL Indirect Bilirubin AST (15-37) U/L ALT (14-59) U/L Alkaline Phosphatase (46-116) U/L Lactate Dehydrogenase (81-234) U/L Creatine Kinase (26-192) U/L C-Reactive Protein (<=0.9) mg/dL Total Protein (6.4-8.2) g/dL Albumin (3.4-5.0) g/dL Globulin Albumin/Globulin Ratio Procalcitonin < 0.05 L (0.1-0.50) ng/mL 04/09/21 Range/Units 06:43 WBC (4.0-10.0) x10^3/uL RBC (4.00-5.50) x10^6/uL Hgb (12.0-16.0) g/dL Hct (33.0-47.0) % MCV (78.0-93.0) fL MCH (26.0-32.0) pg MCHC (32.0-36.0) g/dL RDW Coeff of Irene (10.0-15.0) % Plt Count (130-400) x10^3/uL Immature Gran % (Auto) (0.00-0.43) % Neut % (Auto) (50.0-80.0) % Lymph % (Auto) (25.0-50.0) % [place] % (Auto) (2.0-11.0) % Eos % (Auto) (0.0-4.0) % Baso % (Auto) (0.2-1.2) % Neut # (Auto) (1.8-7.7) x10^3/uL Lymph # (Auto) (1.0-4.8) x10^3/uL [place] # (Auto) (0.0-0.8) x10^3/uL Eos # (Auto) (0.0-0.5) x10^3/uL Baso # (Auto) (0.0-0.2) x10^3/uL Immature Gran # (Auto) (0.00-0.07) x10^3/uL PT (9.9-12.5) SEC INR (2.0-3.5) APTT (25.6-32.8) SEC D-Dimer, Quantitative (<=0.58) mg/LFEU POC VBG pH (7.33-7.43) pH POC VBG pCO2 (41-51) mmHg POC VBG pO2 mmHg POC VBG HCO3 (22-29) mmol/L POC Venous O2 Sat % VBG Base Excess (-(2)-3) mmol/L POC FiO2 Sodium 135 L (136-145) mmol/L Potassium 3.9 (3.5-5.1) mmol/L Chloride 100 (98-107) mmol/L Carbon Dioxide 24 (21-32) mmol/L POC Venous Total CO2 (23-30) mmol/L Anion Gap 14.9 (5-15) mmol/L BUN 16 (7-18) mg/dL Creatinine 0.8 (0.55-1.02) mg/dL Est Cr Clr Drug Dosing 86.37 mL/min Estimated GFR (MDRD) > 60 Glucose 150 H (70-99) mg/dL Lactic Acid (0.4-2.0) mmol/L Calcium 8.7 (8.5-10.1) mg/dL Corrected Calcium 9.5 (8.5-10.1) mg/dL Ferritin (8-252) ng/mL Total Bilirubin 0.4 (0.2-1.0) mg/dL Direct Bilirubin (0.00-0.20) mg/dL Indirect Bilirubin AST 44 H (15-37) U/L ALT 29 (14-59) U/L Alkaline Phosphatase 52 (46-116) U/L Lactate Dehydrogenase (81-234) U/L Creatine Kinase (26-192) U/L C-Reactive Protein (<=0.9) mg/dL Total Protein 8.5 H (6.4-8.2) g/dL Albumin 3.0 L (3.4-5.0) g/dL Globulin 5.5 Albumin/Globulin Ratio 0.55 Procalcitonin (0.1-0.50) ng/mL Result Diagrams: 04/09/21 06:43 04/09/21 06:43 Sepsis Event Note - Evaluation Sepsis Screening Result: No Definite Risk - Focused Exam Vital Signs: Vital Signs Temp Pulse Resp BP Pulse Ox Pulse Ox 04/09/21 07:13 92 L 04/09/21 05:53 37.2 C 70 20 117/77 94 L 04/09/21 02:00 36.3 C 74 23 H 141/80 H 91 L 04/08/21 22:00 35.1 C L 87 14 141/76 H 90 L - Problem List & Annotations (1) Acute respiratory failure with hypoxia SNOMED Code(s): 95763192, 188013420 Code(s): J96.01 - ACUTE RESPIRATORY FAILURE WITH HYPOXIA Status: Acute Current Visit: Yes (2) COVID-19 SNOMED Code(s): 787438659 Code(s): U07.1 - COVID-19 Status: Acute Current Visit: Yes (3) Pneumonia due to COVID-19 virus SNOMED Code(s): 440088035732236880 Code(s): U07.1 - COVID-19; J12.82 - PNEUMONIA DUE TO CORONAVIRUS DISEASE 2019 Status: Acute Current Visit: Yes (4) Exacerbation of asthma SNOMED Code(s): 113739655 Code(s): J45.901 - UNSPECIFIED ASTHMA WITH (ACUTE) EXACERBATION Status: Acute Current Visit: No (5) Obesity SNOMED Code(s): 586733361, 835314795 Code(s): E66.9 - OBESITY, UNSPECIFIED Status: Chronic Current Visit: Yes Qualifiers: Obesity type: due to excess calories Obesity classification: adult class 3 (BMI >= 40) Serious obesity comorbidity presence: without serious comorbidity Body mass index: BMI 50.0-59.9 Qualified Code(s): E66.01 - Morbid (severe) obesity due to excess calories; Z68.43 - Body mass index [BMI] 50.0-59.9, adult - Problem List Review Problem List Initiated/Reviewed/Updated: Yes - My Orders Last 24 Hours: My Active Orders 04/09/21 08:22 Cyclobenzaprine [Flexeril] 5 mg PO Q8H PRN 04/10/21 05:11 CBC WITH AUTO DIFF [HEME] Routine CMP [COMPREHENSIVE METABOLIC PN,CMP] [CHEM] Routine - Assessment Assessment:: 35 yo hospital day 1 with respiratory failure secondary to COVID. Overall, stable compared to last evening. - Plan Plan:: COVID-19 Pneumonia Acute Hypoxic Respiratory Failure - Symptom onset 03/29/21 (now on day 10) - Worsening of symptoms requiring O2 - Non-vaccinated - Acute phase reactants elevated Plan: - Admit to inpatient - Remdesivir - Steroids - Monitoring of labs (CMP) daily - Supplemental O2, RT - Contact precautions - Albuterol prn for SOB/cough - Prone PRN - CT chest negative for PE Chronic: - Asthma: home albuterol prn - Obesity: hold phentermine, topamax Diet: Regular DVT: Lovenox SQ CODE: Full Disposition: Good given age. Admit to inpatient for treatment/monitoring of COVID pneumonia and hypoxia. Management as above.
--- NOTE | 2021-04-09 08:43 | PCM.SN.2 ---
- Free Text/Narrative Note: Patient seen with Jerilyn Romero. Please see her notes for details. Only addition is that we will add some flexeril to see if that will help with sleeping. Discussed that we do not really do stronger sleep aids/relaxants given potential to worsen respiratory status and she voices understanding. No change to her plan of care today.
[2021-04-09] MEDS ORDERED: Enoxaparin 40 MG/0.4 ML Syringe SUBCUT SCH (12:00)
[2021-04-09] MEDS: Enoxaparin 120 MG/0.8 ML Syringe SUBCUT SCH ×2 (12:09→22:20)
[2021-04-09] MEDS: Ascorbic Acid 500 MG Tab PO SCH ×2 (12:10→19:58)
[2021-04-09] MEDS: dexAMETHasone 2 MG, dexAMETHasone 4 MG PO SCH ×2 (12:10)
[2021-04-09] MEDS: Cholecalciferol (Vitamin D3) 25 MCG Tab PO SCH (12:10)
[2021-04-09] MEDS: Zinc Sulfate 220 MG Cap PO SCH (12:10)
[2021-04-09] MEDS: REMDESIVIR 100 MG in Sodium Chloride 0.9% 100 ML IV SCH (14:16)
[2021-04-09] MEDS ORDERED: Hypromellose 0.3% Ophth Soln 15 ML Bottle EYEBOTH PRN (14:54)
[2021-04-10 07:38] LABS: ANION GAP 11.8 mmol/L (5-15); CHLORIDE,CL 103 mmol/L (98-107); SODIUM,NA 139 mmol/L (136-145)
[2021-04-10] MEDS ORDERED: Enoxaparin 120 MG/0.8 ML Syringe SUBCUT SCH (08:00)
--- NOTE | 2021-04-10 08:54 | PCM.PN ---
- General Info Date of Service: 04/10/21 Subjective Update: 35 yo female hospital day #3 admitted with hypoxic respiratory failure secondary to COVID. States she slept well last night but is still tired today. Has been voiding fine. No further diarrhea. Not eating/drinking much because she is so tired. No n/v/abdominal pain. No fever or chills. Has not noticed shortness of breath or cough but notes uncertainty related to the fact she has been sleeping so much. - Review of Systems General: Reports: Fatigue. Denies: Fever, Chills HEENT: Reports: No Symptoms Pulmonary: Reports: No Symptoms Cardiovascular: Reports: No Symptoms Gastrointestinal: Reports: No Symptoms Genitourinary: Reports: No Symptoms Musculoskeletal: Reports: No Symptoms Skin: Reports: No Symptoms Neurological: Reports: No Symptoms - Patient Data Vitals - Most Recent: Last Vital Signs Temp 36.2 C 04/10/21 06:51 Pulse 59 L 04/10/21 06:51 Resp 20 04/10/21 06:51 BP 109/62 04/10/21 06:51 Pulse Ox 97 04/10/21 07:45 Weight - Most Recent: 136.078 kg I&O - Last 24 Hours: Intake & Output 04/09/21 04/10/21 04/10/21 22:59 06:59 14:59 Intake Total 340 300 Balance 340 300 Lab Results Last 24 Hours: Laboratory Results - last 24 hr 04/10/21 04/10/21 Range/Units 06:41 06:41 WBC 5.3 (4.0-10.0) x10^3/uL RBC 4.67 (4.00-5.50) x10^6/uL Hgb 14.5 (12.0-16.0) g/dL Hct 44.3 (33.0-47.0) % MCV 94.9 H (78.0-93.0) fL MCH 31.0 (26.0-32.0) pg MCHC 32.7 (32.0-36.0) g/dL RDW Coeff of Irene 11.5 (10.0-15.0) % Plt Count 282 (130-400) x10^3/uL Add Manual Diff Yes Neutrophils % (Manual) 60 (50-80) % Band Neutrophils % 3 (0-6) % Lymphocytes % (Manual) 20 L (25-50) % Reactive Lymphs % 6 H (0) % Monocytes % (Manual) 11 (2-11) % Absolute Neutrophils 3.3 (1.8-7.7) x10^3/uL Lymphocytes # (Manual) 1.4 (1.0-4.8) x10^3/uL Monocytes # (Manual) 0.6 (0.0-0.8) x10^3/uL Platelet Estimate Adequate Macrocytosis 1+ slight H Sodium 139 (136-145) mmol/L Potassium 3.8 (3.5-5.1) mmol/L Chloride 103 (98-107) mmol/L Carbon Dioxide 28 (21-32) mmol/L Anion Gap 11.8 (5-15) mmol/L BUN 17 (7-18) mg/dL Creatinine 0.8 (0.55-1.02) mg/dL Est Cr Clr Drug Dosing 86.37 mL/min Estimated GFR (MDRD) > 60 Glucose 147 H (70-99) mg/dL Calcium 8.9 (8.5-10.1) mg/dL Corrected Calcium 9.7 (8.5-10.1) mg/dL Total Bilirubin 0.3 (0.2-1.0) mg/dL AST 31 (15-37) U/L ALT 26 (14-59) U/L Alkaline Phosphatase 53 (46-116) U/L Total Protein 8.7 H (6.4-8.2) g/dL Albumin 3.0 L (3.4-5.0) g/dL Globulin 5.7 Albumin/Globulin Ratio 0.53 Dante Results Last 24 Hours: Microbiology 04/08/21 15:40 Aerobic Blood Culture - Preliminary Blood NO GROWTH AFTER 1 DAY Anaerobic Blood Culture - Preliminary NO GROWTH AFTER 1 DAY 04/08/21 15:45 Aerobic Blood Culture - Preliminary Blood - Venous - Lab Draw NO GROWTH AFTER 1 DAY Anaerobic Blood Culture - Preliminary NO GROWTH AFTER 1 DAY Med Orders - Current: Current Medications Acetaminophen (Acetaminophen 325 Mg Tab) 650 mg PO Q4H PRN PRN Reason: Fever Greater Than 101 Last Admin: 04/08/21 20:24 Dose: 650 mg Documented by: Albuterol (Albuterol Hfa 18 Gm Inhaler) 0 gm INH Q4H PRN PRN Reason: Shortness of Breath Last Admin: 04/09/21 04:18 Dose: 2 puff Documented by: Artificial Tears (Hypromellose 0.3% Ophth Soln 15 Ml Bottle) 0 ml EYEBOTH Q1H PRN PRN Reason: Dry Eyes Ascorbic Acid (Ascorbic Acid 500 Mg Tab) 500 mg PO BID [facility] Last Admin: 04/09/21 19:58 Dose: 500 mg Documented by: Cholecalciferol (Cholecalciferol (Vitamin D3) 25 Mcg Tab) 50 mcg PO DAILY [facility] Last Admin: 04/09/21 12:10 Dose: 50 mcg Documented by: Cyclobenzaprine HCl (Cyclobenzaprine 10 Mg Tab) 5 mg PO Q8H PRN PRN Reason: muscle spasms Last Admin: 04/09/21 19:59 Dose: 5 mg Documented by: Dexamethasone 2 mg/ (Dexamethasone 4 mg) 6 mg PO DAILY [facility] Stop: 04/13/21 12:01 Last Admin: 04/09/21 12:10 Dose: 6 mg Documented by: Enoxaparin Sodium (Enoxaparin 120 Mg/0.8 Ml Syringe) 120 mg SUBCUT Q12H [facility] Remdesivir 100 mg/ Sodium (Chloride) 100 mls @ 100 mls/hr IV Q24H [facility] Stop: 04/12/21 15:59 Last Admin: 04/09/21 14:16 Dose: 100 mls/hr Documented by: Ibuprofen (Ibuprofen 200 Mg Tab) 600 mg PO Q6H PRN PRN Reason: Pain (mild 1-3) Last Admin: 04/09/21 04:54 Dose: 600 mg Documented by: Ondansetron HCl (Ondansetron 4 Mg Tab.Dis) 4 mg PO Q4H PRN PRN Reason: nausea, able to take PO Last Admin: 04/09/21 20:00 Dose: 4 mg Documented by: Zinc Sulfate (Zinc Sulfate 220 Mg Cap) 220 mg PO DAILY [facility] Last Admin: 04/09/21 12:10 Dose: 220 mg Documented by: Discontinued Medications Dexamethasone 2 mg/ (Dexamethasone 4 mg) 6 mg PO DAILY [facility] Stop: 04/18/21 08:01 Dexamethasone 2 mg/ (Dexamethasone 4 mg) 6 mg PO ONETIME ONE Stop: 04/08/21 15:33 Last Admin: 04/08/21 15:38 Dose: 6 mg Documented by: Enoxaparin Sodium (Enoxaparin 120 Mg/0.8 Ml Syringe) 120 mg SUBCUT Q12H [facility] Last Admin: 04/09/21 22:20 Dose: 120 mg Documented by: Remdesivir 200 mg/ Sodium (Chloride) 250 mls @ 250 mls/hr IV ONETIME ONE Stop: 04/08/21 16:16 Last Admin: 04/08/21 15:32 Dose: 250 mls/hr Documented by: Iopamidol (Iopamidol 755 Mg/Ml 100 Ml Bottle) 100 ml IVPUSH ONETIME ONE Stop: 04/08/21 17:04 Last Admin: 04/08/21 20:34 Dose: 100 ml Documented by: - Exam General: Alert, Oriented, Other (tired but does alert to voice) HEENT: Mucous Membr. Moist/[place] Neck: Supple, Trachea Midline, No Thyromegaly. No: Lymphadenopathy Lungs: Normal Respiratory Effort, Crackles (both lower lobes) Cardiovascular: Regular Rate, Regular Rhythm, No Murmurs GI/Abdominal Exam: Normal Bowel Sounds, Soft, Non-Tender, No Organomegaly, No Distention, No Mass Extremities: Normal Inspection, Non-Tender, No Pedal Edema, Normal Capillary Refill Peripheral Pulses: 2+: Radial (L), Radial (R) Skin: Warm, Dry, Intact Neurological: No New Focal Deficit - Patient Data Lab Results Last 24 hrs: Laboratory Results - last 24 hr 04/10/21 04/10/21 Range/Units 06:41 06:41 WBC 5.3 (4.0-10.0) x10^3/uL RBC 4.67 (4.00-5.50) x10^6/uL Hgb 14.5 (12.0-16.0) g/dL Hct 44.3 (33.0-47.0) % MCV 94.9 H (78.0-93.0) fL MCH 31.0 (26.0-32.0) pg MCHC 32.7 (32.0-36.0) g/dL RDW Coeff of Irene 11.5 (10.0-15.0) % Plt Count 282 (130-400) x10^3/uL Add Manual Diff Yes Neutrophils % (Manual) 60 (50-80) % Band Neutrophils % 3 (0-6) % Lymphocytes % (Manual) 20 L (25-50) % Reactive Lymphs % 6 H (0) % Monocytes % (Manual) 11 (2-11) % Absolute Neutrophils 3.3 (1.8-7.7) x10^3/uL Lymphocytes # (Manual) 1.4 (1.0-4.8) x10^3/uL Monocytes # (Manual) 0.6 (0.0-0.8) x10^3/uL Platelet Estimate Adequate Macrocytosis 1+ slight H Sodium 139 (136-145) mmol/L Potassium 3.8 (3.5-5.1) mmol/L Chloride 103 (98-107) mmol/L Carbon Dioxide 28 (21-32) mmol/L Anion Gap 11.8 (5-15) mmol/L BUN 17 (7-18) mg/dL Creatinine 0.8 (0.55-1.02) mg/dL Est Cr Clr Drug Dosing 86.37 mL/min Estimated GFR (MDRD) > 60 Glucose 147 H (70-99) mg/dL Calcium 8.9 (8.5-10.1) mg/dL Corrected Calcium 9.7 (8.5-10.1) mg/dL Total Bilirubin 0.3 (0.2-1.0) mg/dL AST 31 (15-37) U/L ALT 26 (14-59) U/L Alkaline Phosphatase 53 (46-116) U/L Total Protein 8.7 H (6.4-8.2) g/dL Albumin 3.0 L (3.4-5.0) g/dL Globulin 5.7 Albumin/Globulin Ratio 0.53 Result Diagrams: 04/10/21 06:41 04/10/21 06:41 Dante Results Last 24 hrs: Microbiology 04/08/21 15:40 Aerobic Blood Culture - Preliminary Blood NO GROWTH AFTER 1 DAY Anaerobic Blood Culture - Preliminary NO GROWTH AFTER 1 DAY 04/08/21 15:45 Aerobic Blood Culture - Preliminary Blood - Venous - Lab Draw NO GROWTH AFTER 1 DAY Anaerobic Blood Culture - Preliminary NO GROWTH AFTER 1 DAY Sepsis Event Note - Evaluation Sepsis Screening Result: Sepsis Risk - Focused Exam Vital Signs: Vital Signs Temp Pulse Resp BP Pulse Ox Pulse Ox 04/10/21 07:45 97 04/10/21 06:51 36.2 C 59 L 20 109/62 94 L 04/10/21 02:13 60 91 L 04/09/21 23:17 37.0 C 69 21 H 133/78 95 04/09/21 21:38 92 L - Problem List & Annotations (1) Acute respiratory failure with hypoxia SNOMED Code(s): 29472952, 012453968 Code(s): J96.01 - ACUTE RESPIRATORY FAILURE WITH HYPOXIA Status: Acute Current Visit: Yes (2) COVID-19 SNOMED Code(s): 204696510 Code(s): U07.1 - COVID-19 Status: Acute Current Visit: Yes (3) Exacerbation of asthma SNOMED Code(s): 668612841 Code(s): J45.901 - UNSPECIFIED ASTHMA WITH (ACUTE) EXACERBATION Status: Acute Current Visit: No (4) Obesity SNOMED Code(s): 216615394, 906602849 Code(s): E66.9 - OBESITY, UNSPECIFIED Status: Chronic Current Visit: Yes Qualifiers: Obesity type: due to excess calories Obesity classification: adult class 3 (BMI >= 40) Serious obesity comorbidity presence: without serious comorbidity Body mass index: BMI 50.0-59.9 Qualified Code(s): E66.01 - Morbid (severe) obesity due to excess calories; Z68.43 - Body mass index [BMI] 50.0-59.9, adult - Problem List Review Problem List Initiated/Reviewed/Updated: Yes - My Orders Last 24 Hours: My Active Orders 04/09/21 11:00 Ascorbic Acid [Vitamin C] 500 mg PO BID Cholecalciferol (Vitamin D3) [Vitamin D3] 50 mcg PO DAILY Zinc Sulfate [Zincate] 220 mg PO DAILY 04/09/21 14:54 Hypromellose [GenTeal Mild to Moderate Ophth Soln] 0 ml EYEBOTH Q1H PRN 04/10/21 08:00 Enoxaparin [Lovenox] 120 mg SUBCUT Q12H 04/10/21 08:48 Chest PE [Ang Chest] [CT] Stat 04/10/21 08:49 BLOOD GAS ARTERIAL [BG] Routine 04/11/21 05:11 CBC WITH AUTO DIFF [HEME] Routine COMPREHENSIVE METABOLIC PN,CMP [CHEM] Routine - Assessment Assessment:: 35 yo hospital day #3 with respiratory failure secondary to COVID. More tired today but also had not slept the night before. Labs and O2 requirements stable. - Plan Plan:: COVID-19 Pneumonia Acute Hypoxic Respiratory Failure - Symptom onset 03/29/21 - Worsening of symptoms requiring O2 - Non-vaccinated - Acute phase reactants elevated Plan: - Admit to inpatient - Will do an ABG today given increased tiredness without change in O2 requirements. - Remdesivir - Steroids - Monitoring of labs (CMP) daily - Supplemental O2, RT - Contact precautions - Albuterol prn for SOB/cough - Prone PRN - CT chest actually inconclusive for PE; therefore, she is on therapeutic lovenox dosing. Will repeat CTA today for clarification. Chronic: - Asthma: home albuterol prn - Obesity: hold phentermine, topamax Diet: Regular DVT: Lovenox SQ - will reduce to prophylactic dosing (which for her is likely 40 BID) if CTA negative CODE: Full Disposition: Guarded - young age weighs in her favor but her BMI is a definite risk factor. She will remain inpatient for treatment/monitoring of COVID pneumonia and hypoxia. Management as above. Anticipate at least 5 days of admission to finish course of remdesivir.
[2021-04-10] MEDS: dexAMETHasone 2 MG, dexAMETHasone 4 MG PO SCH ×2 (09:49)
[2021-04-10] MEDS: Ascorbic Acid 500 MG Tab PO SCH ×2 (09:49→19:55)
[2021-04-10] MEDS: Zinc Sulfate 220 MG Cap PO SCH (09:49)
[2021-04-10] MEDS: Cholecalciferol (Vitamin D3) 25 MCG Tab PO SCH (09:49)
[2021-04-10 09:52] LABS: PCO2 ARTERIAL,POC 44 mmHg (35-48)
[2021-04-10] MEDS ORDERED: Iopamidol 755 Mg/ML 100 ML Bottle IVPUSH ONE (10:58)
--- NOTE | 2021-04-10 11:11 | CT ---
[id number] CT/CTA Chest EXAM: CTA Chest CLINICAL DATA: RULE OUT PULMONARY EMBOLI. COMPARISON STUDY: April 08, 2021. FINDINGS: Lungs: Scattered patchy areas of mixed density parenchymal opacification and intralobular septal thickening throughout both lungs. Findings are consistent with COVID pneumonia. No significant change from the prior examination. No pleural effusion or pneumothorax. Mediastinum: Unchanged from the prior examination. Heart and great vessels: Negative for pulmonary embolus. Unchanged from the prior examination. Bones: Unchanged from the prior examination. Upper abdomen: Liver demonstrates diffusely increased density consistent with steatosis. Small sliding-type hiatus hernia. Otherwise unremarkable. IMPRESSION: Negative for pulmonary embolus. COVID pneumonia. Overall severity has not significantly changed since the prior examination. Harry Frederick MD 04/10/21 6950 Thank you for allowing us to participate in the care of your patient.
[2021-04-10] MEDS: REMDESIVIR 100 MG in Sodium Chloride 0.9% 100 ML IV SCH (15:41)
[2021-04-10] MEDS: Enoxaparin 40 MG/0.4 ML Syringe SUBCUT SCH (19:55)
[2021-04-11 07:21] LABS: CHLORIDE,CL 105 mmol/L (98-107); SODIUM,NA 140 mmol/L (136-145)
[2021-04-11 07:22] LABS: ANION GAP 11.6 mmol/L (5-15)
[2021-04-11] MEDS: Enoxaparin 40 MG/0.4 ML Syringe SUBCUT SCH (08:43)
[2021-04-11] MEDS: Zinc Sulfate 220 MG Cap PO SCH (08:43)
[2021-04-11] MEDS: Ascorbic Acid 500 MG Tab PO SCH (08:43)
[2021-04-11] MEDS: dexAMETHasone 2 MG, dexAMETHasone 4 MG PO SCH ×2 (08:44)
[2021-04-11] MEDS: Cholecalciferol (Vitamin D3) 25 MCG Tab PO SCH (08:44)
--- NOTE | 2021-04-11 09:11 | PCM.DCSUM1 ---
Discharge Summary - Discharge Data Discharge Date: 04/11/21 Discharge Disposition: Home, Self-Care 01 Condition: Good - Referral to Home Health Primary Care Physician: Alma Delia Roberts MD - Discharge Diagnosis/Problem(s) (1) Acute respiratory failure with hypoxia SNOMED Code(s): 42418258, 344880598 ICD Code: J96.01 - ACUTE RESPIRATORY FAILURE WITH HYPOXIA Status: Acute Current Visit: Yes (2) COVID-19 SNOMED Code(s): 372364026 ICD Code: U07.1 - COVID-19 Status: Acute Current Visit: Yes (3) Exacerbation of asthma SNOMED Code(s): 555569440 ICD Code: J45.901 - UNSPECIFIED ASTHMA WITH (ACUTE) EXACERBATION Status: Acute Current Visit: No (4) Obesity SNOMED Code(s): 991331887, 805481531 ICD Code: E66.9 - OBESITY, UNSPECIFIED Status: Chronic Current Visit: Yes Qualifiers: Obesity type: due to excess calories Obesity classification: adult class 3 (BMI >= 40) Serious obesity comorbidity presence: without serious comorbidity Body mass index: BMI 50.0-59.9 Qualified Code(s): E66.01 - Morbid (severe) obesity due to excess calories; Z68.43 - Body mass index [BMI] 50.0-59.9, adult - Patient Summary/Data Operative Procedure(s) Performed: none Complications: none Consults: Consultations 04/08/21 18:13 Respiratory Care Assess and Treatment [CONS] Routine Labs Pending at D/C: none Recommended Follow-up Testing/Procedures: none Planned Operative Procedure(s) after DC: none Hospital Course: Ms. Gary is a 35 yo female who was admitted with respiratory failure secondary to COVID after presenting to the ER for evaluation of increasing shortness of breath in the setting of a known diagnosis of COVID. She was admitted and started on COVID treatment protocol with remdesivir, dexamethasone, and the vitamin regimen. She has been on oxygen via nasal cannula with stable requ irements since admission. Her d-dimer was elevated. Her initial CTA was inconclusive; therefore, she was treated with therapeutic doses of lovenox. A repeat CT scan done yesterday was negative. Therefore, her dose was reduced to prophylactic dosing. Her hospital stay was otherwise uncomplicated. She is very motivated to get home and take care of her children. Discussed concerns around potential for decompensation and not having medical personnel to help her as well as the fact that she has not completed her course of remdesivir (which in recent studies has not been shown to be as helpful as originally thought); strongly advised that she stay until tomorrow. She voices understanding but still wants to go. She will be discharged home with a home monitoring kit to monitor her O2 saturations at home. She will be discharged home on oxygen at 4L via nasal cannula as well as lovenox x 1 week as well as dexamethasone for another 6 days. She will follow-up in clinic in 1 week. Reasons to return sooner discussed. - Patient Instructions Diet: Usual Diet as Tolerated Activity: As Tolerated Driving: May Drive Today Showering/Bathing: May Shower Notify Provider of: Fever - Discharge Plan *PRESCRIPTION DRUG MONITORING PROGRAM REVIEWED*: No *COPY OF PRESCRIPTION DRUG MONITORING REPORT IN PATIENT IGNACIO: No Prescriptions/Med Rec: Enoxaparin [Lovenox] 40 mg SUBCUT DAILY #7 syringe Home Medications: Home Meds Enoxaparin [Lovenox] 40 mg SUBCUT DAILY #7 syringe 04/11/21 [Rx] dexAMETHasone [Dexamethasone] 6 mg PO DAILY #9 tablet 04/11/21 [Rx] Forms: ED Department Discharge Referrals: Alma Delia Roberts MD [Primary Care Provider] - - Discharge Summary/Plan Comment DC Time >30 min.: No Total # of Minutes for Discharge Time: 25 - General Info Date of Service: 04/11/21 Subjective Update: Patient is feeling better this morning. Slept ok. Still tired but less so today. Has been eating well. No n/v/d. No abdominal pain. Breathing is ok but she has not been out of bed much. Cough is resolved. She intends to go home today. - Review of Systems General: Reports: No Symptoms HEENT: Reports: No Symptoms Pulmonary: Reports: No Symptoms Cardiovascular: Reports: No Symptoms Gastrointestinal: Reports: No Symptoms Genitourinary: Reports: No Symptoms Musculoskeletal: Reports: No Symptoms Skin: Reports: No Symptoms Neurological: Reports: No Symptoms - Patient Data Vitals - Most Recent: Last Vital Signs Temp 36.8 C 04/11/21 05:49 Pulse 61 04/11/21 05:49 Resp 22 H 04/11/21 05:49 BP 112/56 L 04/11/21 05:49 Pulse Ox 95 04/11/21 05:49 Weight - Most Recent: 136.078 kg I&O - Last 24 hours: Intake & Output 04/10/21 04/11/21 04/11/21 22:59 06:59 14:59 Intake Total 580 220 Balance 580 220 Lab Results - Last 24 hrs: Laboratory Results - last 24 hr 04/10/21 04/11/21 04/11/21 Range/Units 09:48 06:48 06:48 WBC 5.5 (4.0-10.0) x10^3/uL RBC 4.28 (4.00-5.50) x10^6/uL Hgb 13.5 (12.0-16.0) g/dL Hct 40.5 (33.0-47.0) % MCV 94.6 H (78.0-93.0) fL MCH 31.5 (26.0-32.0) pg MCHC 33.3 (32.0-36.0) g/dL RDW Coeff of Irene 11.6 (10.0-15.0) % Plt Count 323 (130-400) x10^3/uL Add Manual Diff Yes Neutrophils % (Manual) 61 (50-80) % Band Neutrophils % 3 (0-6) % Lymphocytes % (Manual) 31 (25-50) % Monocytes % (Manual) 5 (2-11) % Absolute Neutrophils 3.5 (1.8-7.7) x10^3/uL Lymphocytes # (Manual) 1.7 (1.0-4.8) x10^3/uL Monocytes # (Manual) 0.3 (0.0-0.8) x10^3/uL Platelet Estimate Adequate POC ABG pH 7.38 (7.35-7.45) pH POC ABG pCO2 44 (35-48) mmHg POC ABG pO2 84 (83-108) mmHg POC ABG HCO3 26.1 (21-28) mmol/L POC ABG Total CO2 26.8 (22-29) mmol/L POC ABG O2 Sat 95.9 (94-98) % POC ABG Base Excess 1 ((-2)-3) mmol/L POC FiO2 36 Sodium 140 (136-145) mmol/L Potassium 3.6 (3.5-5.1) mmol/L Chloride 105 (98-107) mmol/L Carbon Dioxide 27 (21-32) mmol/L Anion Gap 11.6 (5-15) mmol/L BUN 17 (7-18) mg/dL Creatinine 0.7 (0.55-1.02) mg/dL Est Cr Clr Drug Dosing 98.71 mL/min Estimated GFR (MDRD) > 60 Glucose 133 H (70-99) mg/dL Calcium 8.5 (8.5-10.1) mg/dL Corrected Calcium 9.4 (8.5-10.1) mg/dL Total Bilirubin 0.3 (0.2-1.0) mg/dL AST 23 (15-37) U/L ALT 20 (14-59) U/L Alkaline Phosphatase 46 (46-116) U/L Total Protein 7.8 (6.4-8.2) g/dL Albumin 2.9 L (3.4-5.0) g/dL Globulin 4.9 Albumin/Globulin Ratio 0.59 SUJATA Results - Last 24 hrs: Microbiology 04/08/21 15:40 Aerobic Blood Culture - Preliminary Blood NO GROWTH AFTER 2 DAYS Anaerobic Blood Culture - Preliminary NO GROWTH AFTER 2 DAYS 04/08/21 15:45 Aerobic Blood Culture - Preliminary Blood - Venous - Lab Draw NO GROWTH AFTER 2 DAYS Anaerobic Blood Culture - Preliminary NO GROWTH AFTER 2 DAYS Med Orders - Current: Current Medications Acetaminophen (Acetaminophen 325 Mg Tab) 650 mg PO Q4H PRN PRN Reason: Fever Greater Than 101 Last Admin: 04/08/21 20:24 Dose: 650 mg Documented by: Albuterol (Albuterol Hfa 18 Gm Inhaler) 0 gm INH Q4H PRN PRN Reason: Shortness of Breath Last Admin: 04/09/21 04:18 Dose: 2 puff Documented by: Artificial Tears (Hypromellose 0.3% Ophth Soln 15 Ml Bottle) 0 ml EYEBOTH Q1H PRN PRN Reason: Dry Eyes Ascorbic Acid (Ascorbic Acid 500 Mg Tab) 500 mg PO BID [facility] Last Admin: 04/11/21 08:43 Dose: 500 mg Documented by: Cholecalciferol (Cholecalciferol (Vitamin D3) 25 Mcg Tab) 50 mcg PO DAILY [facility] Last Admin: 04/11/21 08:44 Dose: 50 mcg Documented by: Cyclobenzaprine HCl (Cyclobenzaprine 10 Mg Tab) 5 mg PO Q8H PRN PRN Reason: muscle spasms Last Admin: 04/09/21 19:59 Dose: 5 mg Documented by: Dexamethasone 2 mg/ (Dexamethasone 4 mg) 6 mg PO DAILY [facility] Stop: 04/13/21 12:01 Last Admin: 04/11/21 08:44 Dose: 6 mg Documented by: Enoxaparin Sodium (Enoxaparin 40 Mg/0.4 Ml Syringe) 40 mg SUBCUT BID [facility] Last Admin: 04/11/21 08:43 Dose: 40 mg Documented by: Remdesivir 100 mg/ Sodium (Chloride) 100 mls @ 100 mls/hr IV Q24H [facility] Stop: 04/12/21 15:59 Last Admin: 04/10/21 15:41 Dose: 100 mls/hr Documented by: Ibuprofen (Ibuprofen 200 Mg Tab) 600 mg PO Q6H PRN PRN Reason: Pain (mild 1-3) Last Admin: 04/09/21 04:54 Dose: 600 mg Documented by: Ondansetron HCl (Ondansetron 4 Mg Tab.Dis) 4 mg PO Q4H PRN PRN Reason: nausea, able to take PO Last Admin: 04/09/21 20:00 Dose: 4 mg Documented by: Zinc Sulfate (Zinc Sulfate 220 Mg Cap) 220 mg PO DAILY [facility] Last Admin: 04/11/21 08:43 Dose: 220 mg Documented by: Discontinued Medications Dexamethasone 2 mg/ (Dexamethasone 4 mg) 6 mg PO DAILY [facility] Stop: 04/18/21 08:01 Dexamethasone 2 mg/ (Dexamethasone 4 mg) 6 mg PO ONETIME ONE Stop: 04/08/21 15:33 Last Admin: 04/08/21 15:38 Dose: 6 mg Documented by: Enoxaparin Sodium (Enoxaparin 120 Mg/0.8 Ml Syringe) 120 mg SUBCUT Q12H [facility] Last Admin: 04/09/21 22:20 Dose: 120 mg Documented by: Enoxaparin Sodium (Enoxaparin 120 Mg/0.8 Ml Syringe) 120 mg SUBCUT Q12H [facility] Last Admin: 04/10/21 09:50 Dose: 120 mg Documented by: Remdesivir 200 mg/ Sodium (Chloride) 250 mls @ 250 mls/hr IV ONETIME ONE Stop: 04/08/21 16:16 Last Admin: 04/08/21 15:32 Dose: 250 mls/hr Documented by: Iopamidol (Iopamidol 755 Mg/Ml 100 Ml Bottle) 100 ml IVPUSH ONETIME ONE Stop: 04/08/21 17:04 Last Admin: 04/08/21 20:34 Dose: 100 ml Documented by: Iopamidol (Iopamidol 755 Mg/Ml 100 Ml Bottle) 75 ml IVPUSH ONETIME ONE Stop: 04/10/21 10:59 Last Admin: 04/10/21 11:00 Dose: 75 ml Documented by: - Exam Quality Assessment: Reports: Supplemental Oxygen (drops to the mid-80's when oxygen is off) General: Reports: Alert, Oriented, No Acute Distress HEENT: Reports: Mucous Membr. Moist/[place] Neck: Reports: Supple, Trachea Midline, No Thyromegaly, Lymphadenopathy Lungs: Reports: Clear to Auscultation, Normal Respiratory Effort Cardiovascular: Reports: Regular Rate, Regular Rhythm, No Murmurs GI/Abdominal Exam: Normal Bowel Sounds, Soft, Non-Tender, No Distention, No Mass Extremities: Normal Inspection, Normal Range of Motion, Non-Tender, No Pedal Edema, Normal Capillary Refill Skin: Reports: Warm, Dry, Intact Neurological: Reports: No New Focal Deficit
[2021-04-11 10:59] VITALS: PULSE 66
[2021-04-11 14:14] VITALS: BP 105/60
== END 2021-04-11 14:30 | disposition home or self-care (01) | DRG 177 ==
LOC: VM.ED 14:40 → VM.MS 18:10
PROVIDERS: ADMIT Family Medicine; ATTEND Family Medicine
PROC: 8E0ZXY6 Isolation (ICD-10-PCS; principal; 2021-04-08)
PROC: XW033E5 Introduction of Remdesivir Anti-infective into Peripheral Vein, Percutaneous Approach, New Technology Group 5 (ICD-10-PCS; 2021-04-08)
PROC: 3E0DX3Z Introduction of Anti-inflammatory into Mouth and Pharynx, External Approach (ICD-10-PCS; 2021-04-08)
DX: U07.1 COVID-19 (principal); J96.01 Acute respiratory failure with hypoxia; J12.82 Pneumonia due to coronavirus disease 2019; J45.901 Unspecified asthma with (acute) exacerbation; Z68.43 Body mass index [BMI] 50.0-59.9, adult; E66.01 Morbid (severe) obesity due to excess calories; Z90.49 Acquired absence of other specified parts of digestive tract
CPT/HCPCS: 36415; 36600; 71045; 71275; 80048; 80053; 80076; 82550; 82728; 82803; 83605; 83615; 84145; 85025; 85027; 85379; 85610; 85730; 86140; 87040; 93005; 93010; 94760; 96365; 96366; 99284; 99285-25; A9270-GY; J1650; J7050; J8540; Q9967

== ENCOUNTER 2021-04-29 16:43 | Emergency (ER) | payer MEDICAID ==
[2021-04-29 16:55] VITALS: BP 130/78; PULSE 86
[2021-04-29] MEDS ORDERED: Albuterol/Ipratropium 3.0-0.5 MG/3 ML Neb Soln NEB ONE (16:56)
--- NOTE | 2021-04-29 17:21 | EDM.PDOC ---
ED HPI GENERAL MEDICAL PROBLEM - General Chief Complaint: Respiratory Problem Stated Complaint: BREATHING ISSUE Time Seen by Provider: 04/29/21 16:48 Source of Information: Reports: Patient History Limitations: Reports: No Limitations - History of Present Illness INITIAL COMMENTS - FREE TEXT/NARRATIVE: Had COVID, was hospitalized, out on . States got better but just before [place], began to have productive cough and low grade fever. Took Dayquil prior to arrival. Has inhaler at home, not used. Denies , states no sexual contact for several months. 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 - Infectious Disease History Infectious Disease History: Reports: Novel Coronavirus - Past Surgical History GI Surgical History: Reports: Cholecystectomy Female Surgical History: Reports: Section Social & Family History - Family History Family Medical History: No Pertinent Family History - Caffeine Use Caffeine Use: Reports: Soda ED ROS GENERAL - Review of Systems Review Of Systems: Comprehensive ROS is negative, except as noted in HPI. ED EXAM, GENERAL - Physical Exam Exam: See Below Exam Limited By: No Limitations General Appearance: Alert, No Apparent Distress, Obese Eye Exam: Bilateral Eye: EOMI Ears: Normal External Exam Nose: Normal Inspection, Normal Mucosa, No Blood Throat/Mouth: Normal Inspection, Normal Lips, Normal Voice, No Airway Compromise Head: Atraumatic, Normocephalic Neck: Normal Inspection, Supple, Non-Tender, Full Range of Motion Respiratory/Chest: No Respiratory Distress, No Accessory Muscle Use, Chest Non- Tender (mildly diminshed in bases, faintly coarse) Cardiovascular: Regular Rate, Rhythm GI/Abdominal: Soft, Non-Tender, No Distention Back Exam: Normal Inspection, Full Range of Motion Extremities: Normal Inspection, Normal Range of Motion, Non-Tender, Normal Cap illary Refill Neurological: Alert, Oriented, Normal Gait, No Motor/Sensory Deficits Psychiatric: Normal Affect, Normal Mood Skin Exam: Warm, Dry, Intact, Normal Color, No Rash Lymphatic: No Adenopathy Course - Vital Signs Last Recorded V/S: Last Vital Signs Temp 100.0 F 04/29/21 16:48 Pulse 86 04/29/21 16:48 Resp 20 04/29/21 16:48 BP 130/78 04/29/21 16:48 Pulse Ox 96 04/29/21 16:48 - Orders/Labs/Meds Orders: Active Orders 24 hr Category Date Time Status RT Aerosol Therapy [RC] ASDIRECTED Care 04/29/21 16:56 Ordered Meds: Medications Discontinued Medications Generic Name Dose Route Start Last Admin Trade Name Freq PRN Reason Stop Dose Admin Albuterol/Ipratropium 3 ml 04/29/21 16:56 04/29/21 17:03 Albuterol/Ipratropium 3.0-0.5 Mg/3 Ml Neb Soln NEB 04/29/21 16:57 3 ml ONETIME ONE Administration - Re-Assessments/Exams Free Text/Narrative Re-Assessment/Exam: 04/29/21 17:40 Responded favorably to duo neb. Has inhaler at home, instructed to use. Z-pack and Tesslon Perles prescriptions written. States feels better. Departure - Departure Time of Disposition: 05:30 Disposition: Home, Self-Care 01 Condition: Good Clinical Impression: Productive cough, Elevated temperature due to infection - Discharge Information Instructions: Cough, Adult, [id number], Community-Acquired Pneumonia, Adult, [id number] Referrals: Alma Delia Roberts MD [Primary Care Provider] - Forms: ED Department Discharge Additional Instructions: Return to work when no fever for 24 hours. Rest, lots of fluids. Use your inhaler. Tylenol as needed. Mucinex over the counter per label. Take antibiot ics as ordered. Follow up with Primary Care Provider if symptoms worsen or do not resolve. Sepsis Event Note (ED) - Focused Exam Vital Signs: Vital Signs Temp Pulse Resp BP Pulse Ox 04/29/21 16:48 100.0 F 86 20 130/78 96 - Problem List & Annotations (1) Productive cough SNOMED Code(s): 83281686, 361852663, 005758402 Code(s): R05.8 - OTHER SPECIFIED COUGH Status: Acute (2) Elevated temperature due to infection SNOMED Code(s): 06576950, 96342458 Code(s): B99.9 - UNSPECIFIED INFECTIOUS DISEASE Status: Acute - My Orders Last 24 Hours: My Active Orders 04/29/21 16:56 RT Aerosol Therapy [RC] ASDIRECTED - Assessment/Plan Last 24 Hours: My Active Orders 04/29/21 16:56 RT Aerosol Therapy [RC] ASDIRECTED
== END 2021-04-29 17:32 | disposition home or self-care (01) ==
LOC: VM.ED 16:43
DX: R05.9 Cough, unspecified (principal); B99.9 Unspecified infectious disease; Z79.899 Other long term (current) drug therapy; Z90.49 Acquired absence of other specified parts of digestive tract
CPT/HCPCS: 94640; 99283-25; J7620-GY

== ENCOUNTER 2021-08-20 15:32 | Emergency (ER) | payer MEDICAID ==
[2021-08-20 16:07] VITALS: BP 164/92; PULSE 80
== END 2021-08-20 16:17 | disposition home or self-care (01) ==
LOC: VM.ED 15:32
DX: I11.9 Hypertensive heart disease without heart failure (principal); Z86.16 Personal history of COVID-19; Z79.899 Other long term (current) drug therapy; Z72.0 Tobacco use
CPT/HCPCS: 99283; 99284

== ENCOUNTER 2022-02-13 15:06 | Emergency (ER) | payer MEDICAID ==
[2022-02-13] MEDS ORDERED: Sodium Chloride 0.9% 10 ML Syringe FLUSH PRN (15:21)
[2022-02-13] MEDS: Aspirin 81 MG Tab.Chew PO ONE (15:23)
[2022-02-13] MEDS ORDERED: Aspirin 81 MG Tab.Chew ONE (15:26)
[2022-02-13 15:49] LABS: PTT,PARTIAL THROMBOPLSTIN TIME 26.3 SEC (20.5-30.9)
[2022-02-13 15:57] LABS: CHLORIDE,CL 104 mmol/L (98-107); SODIUM,NA 141 mmol/L (136-145)
[2022-02-13 15:59] LABS: ANION GAP 10.6 mmol/L (5-15); ESTIMATED GFR 99 mL/min (>=60)
[2022-02-13] MEDS ORDERED: Iopamidol 755 Mg/ML 100 ML Bottle ONE (16:42)
[2022-02-13 17:55] VITALS: BP 148/72; PULSE 72
== END 2022-02-13 17:43 | disposition home or self-care (01) ==
LOC: VM.ED 15:06
DX: R07.89 Other chest pain (principal); J45.909 Unspecified asthma, uncomplicated; I10 Essential (primary) hypertension; E66.9 Obesity, unspecified; Z68.43 Body mass index [BMI] 50.0-59.9, adult; Z79.899 Other long term (current) drug therapy; Z90.49 Acquired absence of other specified parts of digestive tract; Z86.16 Personal history of COVID-19
CPT/HCPCS: 36415; 80053; 83735; 84100; 84443; 84484; 85025; 85379; 85610; 85730; 93005; 93010; 99284; 99285; A9270-GY; Q9967

== ENCOUNTER 2023-08-03 20:37 | Emergency (ER) | payer MEDICAID ==
[2023-08-03 20:56] VITALS: BP 167/66; PULSE 99
[2023-08-03] MEDS: Take Home: Codeine/Promethazine 10-6.25 MG/5 ML Syrup 5 ML, 2 Cup Pack PO ONE (20:57)
== END 2023-08-03 21:06 | disposition home or self-care (01) ==
LOC: VM.ED 20:37
DX: J04.10 Acute tracheitis without obstruction (principal); I10 Essential (primary) hypertension; J45.909 Unspecified asthma, uncomplicated; E66.9 Obesity, unspecified; F17.210 Nicotine dependence, cigarettes, uncomplicated; Z79.51 Long term (current) use of inhaled steroids; Z90.49 Acquired absence of other specified parts of digestive tract; Z86.16 Personal history of COVID-19; Z68.41 Body mass index [BMI] 40.0-44.9, adult
CPT/HCPCS: 99284; A9270; 99283